=== PATIENT | female | born 1995 | race Caucasian/White ===

== ENCOUNTER 2017-04-30 23:26 | Emergency (ER) | payer MEDICAID ==
[2017-04-30] MEDS ORDERED: Sodium Chloride 0.9% 1,000 ML IV SCH (23:45)
[2017-04-30] MEDS ORDERED: Ondansetron 4 MG/2 ML SDV IVPUSH ONE (23:46)
[2017-04-30] MEDS ORDERED: Metoclopramide 10 MG/2 ML SDV IVPUSH ONE (23:56)
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
[2017-05-01 00:41] VITALS: BP 138/94
[2017-05-01] MEDS ORDERED: Metoclopramide 10 MG Tab PO ONE (01:04)
== END 2017-05-01 01:17 | disposition home or self-care (01) ==
LOC: JP.ED 23:26
DX: O21.1 Hyperemesis gravidarum with metabolic disturbance (principal); Z3A.01 Less than 8 weeks gestation of pregnancy; Z87.891 Personal history of nicotine dependence; Z88.1 Allergy status to other antibiotic agents; Z88.2 Allergy status to sulfonamides
CPT/HCPCS: 36415; 80053; 81001; 85025; 87086; 96361; 96374; 96375; 99284; A9270; J2405; J2765; J7040; 99283

== ENCOUNTER 2017-05-06 22:15 | Observation (INO) | payer MEDICAID ==
[2017-05-07] MEDS ORDERED: Ondansetron 4 MG/2 ML SDV IVPUSH ONE ×3 (00:01→07:25)
[2017-05-07] MEDS ORDERED: Metoclopramide 10 MG/2 ML SDV IVPUSH ONE ×2 (00:01→05:10)
[2017-05-07] MEDS ORDERED: Sodium Chloride 0.9% 1,000 ML IV SCH ×2 (00:15→01:15)
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
[2017-05-07] MEDS ORDERED: LORazepam 2 MG/ML MDV IVPUSH ONE ×2 (01:11→03:09)
[2017-05-07] MEDS ORDERED: Acetaminophen 325 MG Tab PO PRN (07:52)
[2017-05-07] MEDS ORDERED: Albuterol 8 GM Inhaler INH PRN (07:56)
[2017-05-07] MEDS ORDERED: LORazepam 2 MG/ML MDV IVPUSH PRN (08:05)
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
[2017-05-07] MEDS ORDERED: Scopolamine 1.5 MG Transdermal Patch TRDERM ONE (08:30)
[2017-05-07] MEDS: NS + KCl 20mEq/L 1,000 ML IV SCH ×2 (08:59→16:14)
[2017-05-07] MEDS ORDERED: THIAMINE IV ONE ×11 (09:30)
[2017-05-07] MEDS ORDERED: VITAMIN K IV ONE ×11 (09:30)
[2017-05-07] MEDS ORDERED: [UNRECOGNIZED DRUG - OTHER] IV ONE ×11 (09:30)
[2017-05-07] MEDS ORDERED: MVI IV ONE ×11 (09:30)
[2017-05-07] MEDS ORDERED: FOLIC ACID IV ONE ×11 (09:30)
[2017-05-07] MEDS: Metoclopramide 10 MG/2 ML SDV IV PRN ×3 (10:12→22:26)
[2017-05-07] MEDS: Promethazine 25 MG Supp RECTAL PRN ×2 (14:44→22:26)
[2017-05-07] MEDS ORDERED: Pantoprazole 40 MG Vial IVPUSH SCH (17:00)
[2017-05-07] MEDS: VERIFY SCOP PATCH TOP SCH (18:31)
[2017-05-07] MEDS ORDERED: IRON PO SCH (21:00)
[2017-05-07] MEDS ORDERED: PRENATAL VIT PO SCH (21:00)
[2017-05-07] MEDS ORDERED: [UNRECOGNIZED DRUG - OTHER] PO SCH (21:00)
[2017-05-07] MEDS ORDERED: Prenatal Multivitamin with Calcium/Folic Acid/Iron Tab PO SCH (21:00)
[2017-05-07] MEDS ORDERED: hydrOXYzine HCl 100 MG/2 ML SDV IM PRN (23:38)
[2017-05-08] MEDS: NS + KCl 20mEq/L 1,000 ML IV SCH ×2 (00:48→09:35)
[2017-05-08] MEDS ORDERED: Ondansetron 4 MG/2 ML SDV IVPUSH ONE (03:04)
[2017-05-08] MEDS: Metoclopramide 10 MG/2 ML SDV IV PRN (05:27)
[2017-05-08] MEDS: VERIFY SCOP PATCH TOP SCH (08:07)
[2017-05-08] MEDS: Promethazine 25 MG Supp RECTAL PRN (08:07)
--- NOTE | 2017-05-08 10:07 | PCM.DCSUM1 ---
Discharge Summary - Hospital Course Free Text/Narrative:: 21-year-old female was admitted through the emergency department today for 1 para 0 currently at 7 weeks 6 days intrauterine hyperemesis gravidarum with dehydration, she was kept in the emergency department several hours variety medications were tried including Reglan, Zofran, fluids Ativan with minimal relief. Subsequently is admitted to the hospital for further evaluation she was given a multivitamin IV bag which included thiamine and vitamin B12 along with a multivitamin her electrolytes were corrected with lactated Ringer's and magnesium phosphate. Medications used in treatment in the hospital included a scopolamine patch, Reglan, permanent promethazine rectal suppository fluid hydration through the night and Zofran. Also in the initial workup urine drug screen was obtained which was positive for cannabis she did take multiple hot showers during her stay in the emergency department, there is concern for combination of cannabis hyperemesis syndrome in combination with hyperemesis gravidarum. After treatment in the hospital she continued to improve was urinating, still having some dry heaves but able to tolerate brought diet bouts of emesis had decreased in frequency, Discharge assessment 2 para 0 now at 8 weeks intrauterine Hyperemesis gravidarum Cannabis hyperemesis syndrome PLAN for discharge to home would be combination of the scopolamine patch, promethazine rectal suppositories as needed as well as Thorazine for breakthrough nausea and vomiting, also has Zofran at home, she will follow up with her primary OB provider after the holiday weekend - Discharge Data Discharge Date: 05/08/17 Discharge Disposition: Home, Self-Care 01 Condition: Good - Discharge Diagnosis/Problem(s) (1) Hyperemesis gravidarum SNOMED Code(s): 35774418 ICD Code: O21.0 - MILD HYPEREMESIS GRAVIDARUM Status: Acute Current Visit : Yes (2) First trimester SNOMED Code(s): 74035102 ICD Code: Z34.90 - ENCNTR FOR SUPRVSN OF NORMAL , UNSP, UNSP TRIMESTER Status: Acute Current Visit: Yes (3) Asthma SNOMED Code(s): 830049453 ICD Code: J45.909 - UNSPECIFIED ASTHMA, UNCOMPLICATED Status: Chronic Current Visit: No (4) Cannabis hyperemesis syndrome concurrent with and due to cannabis abuse SNOMED Code(s): 85567871058812204 ICD Code: F12.188 - CANNABIS ABUSE WITH OTHER CANNABIS-INDUCED DISORDER Status: Acute Current Visit: Yes - Patient Instructions Diet: Regular Diet as Tolerated Driving: May Drive Today Showering/Bathing: May Shower Notify Provider of: Fever, Nausea and/or Vomiting (getting worse) - Discharge Plan Prescriptions/Med Rec: chlorproMAZINE [Thorazine] 25 mg PO Q4H PRN #10 tab PRN Reason: Nausea Promethazine HCl [Phenergan] 25 mg RC BID PRN #5 supp.rect PRN Reason: Nausea Scopolamine [Transderm-Scop] 1 each TD Q72H #4 patch.td.3 Home Medications: Home Meds Albuterol Sulfate [Proair Hfa] 1 - 2 puff IH Q4H PRN 05/12/13 [History] Ondansetron [Zofran] 1 tab PO Q8H PRN 07/04/14 [History] Vit #108/Iron/FA [ One Tablet] 1 tab PO BEDTIME 07/04/14 [ History] Promethazine HCl [Phenergan] 25 mg RC BID PRN #5 supp.rect 05/08/17 [Rx] Scopolamine [Transderm-Scop] 1 each TD Q72H #4 patch.td.3 05/08/17 [Rx] chlorproMAZINE [Thorazine] 25 mg PO Q4H PRN #10 tab 05/08/17 [Rx] Patient Handouts: Cannabis Use Disorder, Eating Plan for Hyperemesis Gravidarum , Promethazine suppositories, Chlorpromazine tablets Forms: ED Department Discharge Referrals: Jenn Purvis CNM [Primary Care Provider] - - Discharge Summary/Plan Comment DC Time >30 min.: No - Patient Data Vitals - Most Recent: Last Vital Signs Temp 97.9 F 05/08/17 03:21 Pulse 59 L 05/08/17 03:21 Resp 18 05/08/17 03:21 BP 126/73 05/08/17 03:21 Pulse Ox 95 05/08/17 03:21 Weight - Most Recent: 87.1 kg I&O - Last 24 hours: Intake & Output 05/07/17 05/08/17 05/08/17 22:59 06:59 14:59 Intake Total 1856 1562 Output Total 750 1350 Balance 1106 212 Lab Results - Last 24 hrs: Laboratory Results - last 24 hr 05/08/17 05/08/17 Range/Units 05:50 05:50 WBC 12.1 H (4.5-11.0) K/uL RBC 4.52 (3.30-5.50) M/uL Hgb 12.5 (12.0-15.0) g/dL Hct 36.5 (36.0-48.0) % MCV 81 (80-98) fL MCH 28 (27-31) pg MCHC 34 (32-36) % Plt Count 298 (150-400) K/uL Neut % (Auto) 79 H (36-66) % Lymph % (Auto) 14 L (24-44) % [place] % (Auto) 7 H (2-6) % Eos % (Auto) 0 L (2-4) % Baso % (Auto) 0 (0-1) % Sodium 135 L (140-148) mmol/L Potassium 3.8 (3.6-5.2) mmol/L Chloride 102 (100-108) mmol/L Carbon Dioxide 21 (21-32) mmol/L Anion Gap 15.8 H (5.0-14.0) mmol/L BUN 5 L (7-18) mg/dL Creatinine 0.5 L (0.6-1.0) mg/dL Est Cr Clr Drug Dosing 144.70 mL/min Estimated GFR (MDRD) > 60 (>60) Glucose 88 (74-106) mg/dL Calcium 9.0 (8.5-10.1) mg/dL Magnesium 1.8 (1.8-2.4) mg/dL [facility] Results - Last 24 hrs: Microbiology 05/07/17 22:15 Stool for WBCs - Final Stool / Feces NO WBC SEEN Med Orders - Current: Current Medications Acetaminophen (Tylenol) 650 mg PO Q4H PRN PRN Reason: mild pain and fever Albuterol (Ventolin Hfa) 0 gm INH Q4H PRN PRN Reason: Dyspnea Hydroxyzine HCl (Vistaril) 25 mg IM Q4H PRN PRN Reason: Anxiety Last Admin: 05/07/17 23:50 Dose: 25 mg Sodium Chloride (Normal Saline) 1,000 mls @ 250 mls/hr IV ASDIRECTED [facility] Last Admin: 05/07/17 01:32 Dose: 250 mls/hr Potassium Chloride/Sodium Chloride (Normal Saline With 20 Meq Kcl) 1,000 mls @ 125 mls/hr IV ASDIRECTED [facility] Last Admin: 05/08/17 09:35 Dose: 125 mls/hr Metoclopramide HCl (Reglan) 5 mg IV Q6H PRN PRN Reason: Nausea/Vomiting Last Admin: 05/08/17 05:27 Dose: 5 mg Verify Scop Patch 0 each TOP DAILY [facility] Last Admin: 05/08/17 08:07 Dose: 1 each Pantoprazole Sodium (Protonix Iv) 40 mg IVPUSH Q24H [facility] Last Admin: 05/07/17 18:31 Dose: 40 mg Prenat Multivit/[place]/Iron/Folic Ac ( Plus Iron) 1 each PO BEDTIME [facility] Last Admin: 05/07/17 21:49 Dose: Not Given Promethazine HCl (Phenadoz) 25 mg RECTAL Q8H PRN PRN Reason: N/V Last Admin: 05/08/17 08:07 Dose: 25 mg Discontinued Medications Sodium Chloride (Normal Saline) 1,000 mls @ 1,000 mls/hr IV ASDIRECTED [facility] Last Admin: 05/07/17 00:34 Dose: 1,000 mls/hr Multivitamins/Minerals 10 ml/Thiamine HCl 100 mg/ Folic Acid 0.6 mg/ Pyridoxine HCl 25 mg/ Lactated Ringer's 1,011.37 mls @ 100 mls/hr IV ONETIME ONE Stop: 05/07/17 19:36 Multivitamins/Minerals 10 ml/Thiamine HCl 100 mg/ Folic Acid 0.6 mg/ Pyridoxine HCl 25 mg/ Magnesium Sulfate 2 gm/Lactated Ringer's 1,015.37 mls @ 100.396 mls/ hr IV ONETIME ONE Stop: 05/07/17 19:36 Last Admin: 05/07/17 10:07 Dose: 100.396 mls/hr Lorazepam (Ativan) 0.5 mg IVPUSH ONETIME ONE Stop: 05/07/17 01:12 Last Admin: 05/07/17 01:28 Dose: 0.5 mg Lorazepam (Ativan) 0.5 mg IVPUSH ONETIME ONE Stop: 05/07/17 03:10 Last Admin: 05/07/17 03:18 Dose: 0.5 mg Lorazepam (Ativan) 1 mg IVPUSH Q4H PRN PRN Reason: Nausea Metoclopramide HCl (Reglan) 10 mg IVPUSH ONETIME ONE Stop: 05/07/17 00:02 Last Admin: 05/07/17 00:34 Dose: 10 mg Metoclopramide HCl (Reglan) 10 mg IVPUSH ONETIME ONE Stop: 05/07/17 05:11 Last Admin: 05/07/17 05:15 Dose: 10 mg Ondansetron HCl (Zofran) 4 mg IVPUSH ONETIME ONE Stop: 05/07/17 00:02 Last Admin: 05/07/17 00:34 Dose: 4 mg Ondansetron HCl (Zofran) 4 mg IVPUSH ONETIME ONE Stop: 05/07/17 03:10 Last Admin: 05/07/17 03:17 Dose: 4 mg Ondansetron HCl (Zofran) 8 mg IVPUSH ONETIME ONE Stop: 05/07/17 07:26 Last Admin: 05/07/17 07:35 Dose: 8 mg Ondansetron HCl (Zofran) 4 mg IVPUSH ONETIME ONE Stop: 05/08/17 03:05 Last Admin: 05/08/17 03:20 Dose: 4 mg Scopolamine (Transderm-Scop) 1.5 mg TRDERM Q72H ONE Stop: 05/07/17 08:31 Last Admin: 05/07/17 08:55 Dose: 1.5 mg *Q Meaningful Use (DIS) - VTE *Q VTE Criteria *Q: - Stroke *Q Stroke Criteria *Q: - AMI *Q AMI Criteria *Q:
[2017-05-08 10:40] VITALS: BP 143/84
== END 2017-05-08 11:31 | disposition home or self-care (01) ==
LOC: JP.ED 22:15 → JP.MS 05-07 07:52
PROVIDERS: ADMIT Family Medicine; ATTEND Family Medicine
DX: O21.0 Mild hyperemesis gravidarum (principal); J45.909 Unspecified asthma, uncomplicated; F12.188 Cannabis abuse with other cannabis-induced disorder; O99.341 Other mental disorders complicating pregnancy, first trimester; Z79.899 Other long term (current) drug therapy; Z88.1 Allergy status to other antibiotic agents; Z88.2 Allergy status to sulfonamides; Z3A.01 Less than 8 weeks gestation of pregnancy
CPT/HCPCS: 36415; 80048; 80305; 81001; 83735; 84100; 85025; 87493; 89055; 96361; 96365; 96366; 96372; 96375; 96376; 99217; 99218; 99285; A9270; C9113; G0378; J2060; J2405; J2765; J3410; J3411; J3415; J3475; J3480; J7040; J7120; 96374; 99284; J3490

== ENCOUNTER 2017-05-09 14:16 | Emergency (ER) | payer MEDICAID ==
[2017-05-09 14:41] VITALS: BP 140/94
[2017-05-09] MEDS ORDERED: LORazepam 2 MG/ML MDV IVPUSH ONE (15:17)
[2017-05-09] MEDS ORDERED: Metoclopramide 10 MG/2 ML SDV IVPUSH ONE (15:17)
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
[2017-05-09] MEDS ORDERED: Sodium Chloride 0.9% 1,000 ML IV SCH (15:30)
[2017-05-09] MEDS: Metoclopramide 10 MG Tab PO ONE (18:17)
== END 2017-05-09 18:20 | disposition home or self-care (01) ==
LOC: JP.ED 14:16
DX: O21.0 Mild hyperemesis gravidarum (principal); O99.511 Diseases of the respiratory system complicating pregnancy, first trimester; J45.909 Unspecified asthma, uncomplicated; Z88.2 Allergy status to sulfonamides; Z88.1 Allergy status to other antibiotic agents; Z79.899 Other long term (current) drug therapy; Z87.891 Personal history of nicotine dependence; Z3A.08 8 weeks gestation of pregnancy
CPT/HCPCS: 36415; 80048; 82150; 83690; 83735; 85025; 96361; 96374; 96375; 99284; A9270; J2060; J2765; J7040; 99283

== ENCOUNTER 2017-05-11 11:20 | Emergency (ER) | payer MEDICAID ==
[2017-05-11 11:45] VITALS: BP 145/101
[2017-05-11] MEDS ORDERED: LORazepam 2 MG/ML MDV IVPUSH ONE (12:13)
[2017-05-11] MEDS ORDERED: Metoclopramide 10 MG/2 ML SDV IVPUSH ONE (12:13)
[2017-05-11] MEDS ORDERED: Sodium Chloride 0.9% 1,000 ML IV SCH (12:15)
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
== END 2017-05-11 15:29 | disposition home or self-care (01) ==
LOC: JP.ED 11:20
DX: O21.0 Mild hyperemesis gravidarum (principal); Z3A.08 8 weeks gestation of pregnancy; Z88.1 Allergy status to other antibiotic agents
CPT/HCPCS: 96361; 96374; 96375; 99283; J2060; J2765; J7040

== ENCOUNTER 2017-05-16 21:53 | Emergency (ER) | payer MEDICAID ==
[2017-05-16 22:25] VITALS: BP 131/82
[2017-05-16] MEDS ORDERED: Sodium Chloride 0.9% 1,000 ML IV SCH (23:00)
[2017-05-16] MEDS ORDERED: LORazepam 2 MG/ML MDV IVPUSH ONE (23:03)
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
[2017-05-16] MEDS ORDERED: Metoclopramide 10 MG/2 ML SDV IVPUSH ONE (23:21)
[2017-05-16] MEDS ORDERED: Bisacodyl 10 MG Supp RECTAL ONE (23:57)
[2017-05-17] MEDS ORDERED: Ondansetron 4 MG/2 ML SDV IVPUSH ONE (00:11)
== END 2017-05-17 00:33 | disposition home or self-care (01) ==
LOC: JP.ED 21:53
DX: O21.0 Mild hyperemesis gravidarum (principal); Z3A.09 9 weeks gestation of pregnancy; Z87.891 Personal history of nicotine dependence; O99.511 Diseases of the respiratory system complicating pregnancy, first trimester; J45.909 Unspecified asthma, uncomplicated; Z88.2 Allergy status to sulfonamides; Z88.1 Allergy status to other antibiotic agents
CPT/HCPCS: 36415; 80048; 80305; 81001; 96361; 96374; 96375; 99284; A9270; J2060; J2405; J2765; J7040

== ENCOUNTER 2017-05-17 15:52 | Emergency (ER) | payer MEDICAID ==
[2017-05-17 16:10] VITALS: BP 143/89
[2017-05-17] MEDS ORDERED: Prochlorperazine 10 MG/2 ML SDV IVPUSH ONE (16:36)
[2017-05-17] MEDS ORDERED: Lactated Ringers 1,000 ML IV ONE (16:37)
[2017-05-17] MEDS ORDERED: Sodium Chloride 0.9% 10 ML Syringe FLUSH PRN (16:37)
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
[2017-05-17] MEDS ORDERED: Promethazine 25 MG Supp RECTAL PRN (17:01)
== END 2017-05-17 18:07 | disposition home or self-care (01) ==
LOC: JP.ED 15:52
DX: O21.9 Vomiting of pregnancy, unspecified (principal); O99.511 Diseases of the respiratory system complicating pregnancy, first trimester; J45.909 Unspecified asthma, uncomplicated; Z3A.10 10 weeks gestation of pregnancy; Z88.2 Allergy status to sulfonamides; Z79.899 Other long term (current) drug therapy; Z87.891 Personal history of nicotine dependence; Z88.1 Allergy status to other antibiotic agents
CPT/HCPCS: 81001; 96361; 96374; 99284; A9270; J0780; J7050; J7120; 99283

== ENCOUNTER 2017-05-30 15:57 | Emergency (ER) | payer MEDICAID ==
[2017-05-30 16:14] VITALS: BP 158/72
[2017-05-30] MEDS ORDERED: Scopolamine 1.5 MG Transdermal Patch TRDERM ONE (16:33)
[2017-05-30] MEDS ORDERED: Ondansetron 4 MG/2 ML SDV IVPUSH ONE (16:34)
[2017-05-30] MEDS ORDERED: Metoclopramide 10 MG/2 ML SDV IVPUSH ONE (16:35)
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
[2017-05-30] MEDS ORDERED: Sodium Chloride 0.9% 1,000 ML IV SCH (16:45)
== END 2017-05-30 17:57 | disposition home or self-care (01) ==
LOC: JP.ED 15:57
DX: O21.0 Mild hyperemesis gravidarum (principal); Z3A.11 11 weeks gestation of pregnancy; Z87.891 Personal history of nicotine dependence; Z79.899 Other long term (current) drug therapy; Z88.1 Allergy status to other antibiotic agents
CPT/HCPCS: 36415; 80048; 85025; 96361; 96374; 96375; 99284; A9270; J2405; J2765; J7040

== ENCOUNTER 2017-06-02 08:43 | Observation (INO) | payer MEDICAID ==
[2017-06-02] MEDS ORDERED: Scopolamine 1.5 MG Transdermal Patch TRDERM ONE (09:17)
[2017-06-02] MEDS ORDERED: Sodium Chloride 0.9% 1,000 ML IV SCH (09:30)
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
[2017-06-02] MEDS ORDERED: Ondansetron 4 MG/2 ML SDV IVPUSH ONE ×2 (09:44→14:00)
[2017-06-02] MEDS ORDERED: LORazepam 2 MG/ML MDV IVPUSH ONE (09:44)
[2017-06-02] MEDS ORDERED: Dextrose 5%-0.225% NaCl w/KCl 1,000 ML IV SCH (10:00)
[2017-06-02] MEDS ORDERED: Thiamine 200 MG/2 ML MDV IV SCH ×2 (11:30→12:00)
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
[2017-06-02] MEDS: Folic Acid 50 MG/10 ML MDV SUBCUT SCH (12:19)
[2017-06-02] MEDS: Thiamine 200 MG/2 ML MDV IV SCH (12:21)
[2017-06-02] MEDS: methylPREDNISolone Sodium Succinate 40 MG/1 ML SDV IV SCH ×2 (12:25→20:39)
[2017-06-02] MEDS: D5 1/2 NS w/ 20 mEq/L KCl 1,000 ML IV SCH (16:31)
[2017-06-02] MEDS: Prochlorperazine 5 MG in Sodium Chloride 0.9% 50 ML IV PRN (18:44)
[2017-06-02] MEDS: Ondansetron 4 MG/2 ML SDV IVPUSH SCH (22:25)
[2017-06-03] MEDS: D5 1/2 NS w/ 20 mEq/L KCl 1,000 ML IV SCH ×3 (00:21→16:53)
[2017-06-03] MEDS: methylPREDNISolone Sodium Succinate 40 MG/1 ML SDV IV SCH ×3 (04:20→20:57)
[2017-06-03] MEDS: Prochlorperazine 5 MG in Sodium Chloride 0.9% 50 ML IV PRN ×2 (07:25→17:17)
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
[2017-06-03] MEDS: Ondansetron 4 MG/2 ML SDV IVPUSH SCH ×2 (10:43→21:54)
[2017-06-03] MEDS: Folic Acid 50 MG/10 ML MDV SUBCUT SCH (13:12)
[2017-06-03] MEDS: Thiamine 200 MG/2 ML MDV IV SCH (13:16)
[2017-06-04] MEDS: Prochlorperazine 5 MG in Sodium Chloride 0.9% 50 ML IV PRN ×2 (01:52→08:00)
[2017-06-04] MEDS: methylPREDNISolone Sodium Succinate 40 MG/1 ML SDV IV SCH ×2 (04:21→18:02)
[2017-06-04] MEDS: Folic Acid 1 MG Tab PO SCH ×2 (11:00→16:39)
[2017-06-04] MEDS: Ondansetron 4 MG Tab.DIS PO SCH ×3 (11:00→17:21)
[2017-06-04] MEDS: Thiamine 100 MG Tab PO SCH ×2 (11:00→16:39)
[2017-06-04] MEDS ORDERED: Pantoprazole 40 MG Tab.CR PO ONE (16:30)
[2017-06-04] MEDS ORDERED: predniSONE 20 MG Tab PO ONE (17:00)
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
--- NOTE | 2017-06-04 17:13 | PCM.DCSUM1 ---
Discharge Summary - Hospital Course Brief History: admitted for Hyeremesis at 11 weeks gestation. Struggled for over a week to keep fluids and food down, was using THC for nausea which caused more problems. On admission had hpyokalemia and dehyration, through were corrected with fluids and potassium. after gut rest for 24 hours fluids were slowing introduced. Dundy foods and slow progress, oral medications today and emesis has resolved. - Discharge Data Discharge Date: 06/04/17 Discharge Disposition: Home, Self-Care 01 Condition: Good - Discharge Diagnosis/Problem(s) (1) Anxiety SNOMED Code(s): 34325556 ICD Code: F41.9 - ANXIETY DISORDER, UNSPECIFIED Status: Acute Current Visit: Yes (2) Dehydration SNOMED Code(s): 21879555 ICD Code: E86.0 - DEHYDRATION Status: Acute Current Visit: Yes (3) Hypokalemia SNOMED Code(s): 30379116 ICD Code: E87.6 - HYPOKALEMIA Status: Acute Current Visit: Yes (4) 11 weeks gestation of SNOMED Code(s): 98986694 ICD Code: Z3A.11 - 11 WEEKS GESTATION OF Status: Acute Current Visit: Yes (5) Hyperemesis gravidarum SNOMED Code(s): 03178499 ICD Code: O21.0 - MILD HYPEREMESIS GRAVIDARUM Status: Acute Current Visit : Yes (6) Cannabis hyperemesis syndrome concurrent with and due to cannabis abuse SNOMED Code(s): 54054768473613618 ICD Code: F12.188 - CANNABIS ABUSE WITH OTHER CANNABIS-INDUCED DISORDER Status: Acute Current Visit: Yes - Patient Instructions Diet, Other: small amounts of fluids, no ice, Dundy foods in small amounts, no overeatin Activity: As Tolerated Driving: May Drive Today Showering/Bathing: May Shower - Discharge Plan Home Medications: Home Meds Albuterol Sulfate [Proair Hfa] 1 - 2 puff IH Q4H PRN 05/12/13 [History] Ondansetron [Zofran] 4 mg PO Q8H PRN 07/04/14 [History] Vit #108/Iron/FA [ One Tablet] 1 tab PO BEDTIME 07/04/14 [ History] Promethazine HCl [Phenergan] 25 mg RC BID PRN #5 supp.rect 05/08/17 [Rx] Scopolamine [Transderm-Scop] 1 each TD Q72H #4 patch.td.3 05/08/17 [Rx] Metoclopramide HCl [Metoclopramide HCl] 10 mg PO Q6HR PRN 05/16/17 [History] Prochlorperazine [Compazine] 5 mg PO Q8H PRN 06/02/17 [History] Forms: ED Department Discharge Referrals: Jenn Purvis CNM [Primary Care Provider] - (see me next week) - Discharge Summary/Plan Comment DC Time >30 min.: Yes Discharge Summary/Plan Comment: Home on bland diet and small amounts of fluids, no ice decreasing prednisone taper for 13 days Thiamin daily Folic acid daily prilosec daily To start Prozac tomorrow for anxiety Zofran 8 mg every 8 hours prn for nausea and compazine for break through - Patient Data Vitals - Most Recent: Last Vital Signs Temp 97.6 F 06/04/17 01:00 Pulse 62 06/04/17 01:00 Resp 18 06/04/17 01:00 BP 111/60 06/04/17 01:00 Pulse Ox 96 06/04/17 01:00 Weight - Most Recent: 183 lb 3.2 oz I&O - Last 24 hours: Intake & Output 06/04/17 06/04/17 06/04/17 06:59 14:59 22:59 Output Total 400 Balance -400 Med Orders - Current: Current Medications Folic Acid (Folic Acid) 1 mg PO DAILY [facility] Last Admin: 06/04/17 16:39 Dose: Not Given Sodium Chloride (Normal Saline) 1,000 mls @ 999 mls/hr IV ASDIRECTED [facility] Last Infusion: 06/02/17 10:36 Dose: Infused Prochlorperazine Edisylate 5 (mg/ Sodium Chloride) 51 mls @ 150 mls/hr IV Q6H PRN PRN Reason: Nausea/Vomiting Last Admin: 06/04/17 01:52 Dose: 150 mls/hr Potassium Chloride/Dextrose/Sod Cl (D5 1/2 Ns W/ 20 Meq/L Kcl) 1,000 mls @ 125 mls/hr IV ASDIRECTED [facility] Last Admin: 06/03/17 16:53 Dose: 125 mls/hr Ondansetron HCl (Zofran Odt) 8 mg PO Q8H [facility] Last Admin: 06/04/17 16:39 Dose: Not Given Prenat Multivit/Mio/Iron/Folic Ac ( Plus Iron) 1 each PO BEDTIME [facility] Thiamine HCl (Vitamin B-1) 25 mg PO DAILY [facility] Last Admin: 06/04/17 16:39 Dose: Not Given Discontinued Medications Folic Acid (Folic Acid) 1 mg SUBCUT DAILY@1200 [facility] Last Admin: 06/03/17 13:12 Dose: 1 mg Potassium Chloride/Dextrose/Sod Cl (D5 1/4 Ns With 20 Meq Kcl) 1,000 mls @ 200 mls/hr IV ASDIRECTED [facility] Last Admin: 06/02/17 10:33 Dose: 200 mls/hr Lorazepam (Ativan) 0.5 mg IVPUSH ONETIME ONE Stop: 06/02/17 09:45 Last Admin: 06/02/17 10:37 Dose: 0.5 mg Methylprednisolone Sodium Succinate (Solu-Medrol) 16 mg IV Q8H [facility] Last Admin: 06/04/17 04:21 Dose: 16 mg Ondansetron HCl (Zofran) 4 mg IVPUSH ONETIME ONE Stop: 06/02/17 09:45 Last Admin: 06/02/17 10:37 Dose: 4 mg Ondansetron HCl (Zofran) 8 mg IVPUSH Q12H [facility] Last Admin: 06/03/17 21:54 Dose: 8 mg Ondansetron HCl (Zofran) 8 mg IVPUSH ONETIME ONE Stop: 06/02/17 14:01 Last Admin: 06/02/17 13:59 Dose: 8 mg Pantoprazole Sodium (Protonix) 40 mg PO ONETIME ONE Stop: 06/04/17 16:31 Last Admin: 06/04/17 16:40 Dose: 40 mg Prednisone (Prednisone) 40 mg PO ONETIME ONE Stop: 06/04/17 17:01 Scopolamine (Transderm-Scop) 1.5 mg TRDERM Q72H ONE Stop: 06/02/17 09:18 Last Admin: 06/02/17 09:35 Dose: 1.5 mg Thiamine HCl (Vitamin B-1) 25 mg IV Q24H [facility] Last Admin: 06/03/17 13:16 Dose: 25 mg *Q Meaningful Use (DIS) - VTE *Q VTE Criteria *Q: - Stroke *Q Stroke Criteria *Q: - AMI *Q AMI Criteria *Q:
[2017-06-04 17:40] VITALS: BP 127/79
[2017-06-04] MEDS ORDERED: Prenatal Multivitamin with Calcium/Folic Acid/Iron Tab PO SCH (21:00)
== END 2017-06-04 18:08 | disposition home or self-care (01) ==
LOC: JP.ED 08:43 → JP.MS 10:45
PROVIDERS: ADMIT Family Medicine; ATTEND Nurse Practitioner Family
DX: O21.1 Hyperemesis gravidarum with metabolic disturbance (principal); O99.341 Other mental disorders complicating pregnancy, first trimester; F41.9 Anxiety disorder, unspecified; F32.9 Major depressive disorder, single episode, unspecified; O99.321 Drug use complicating pregnancy, first trimester; F12.188 Cannabis abuse with other cannabis-induced disorder; O99.511 Diseases of the respiratory system complicating pregnancy, first trimester; J45.909 Unspecified asthma, uncomplicated; Z3A.11 11 weeks gestation of pregnancy; Z90.89 Acquired absence of other organs; Z87.891 Personal history of nicotine dependence; Z88.2 Allergy status to sulfonamides; Z88.1 Allergy status to other antibiotic agents
CPT/HCPCS: 36415; 80048; 80305; 81001; 84443; 85025; 87086; 96361; 96374; 96375; 99284; A9270; J0780; J2060; J2405; J2920; J3411; J3480; J7040; J7050; 81003; 96365; 96366; 96372; 96376; 99285; G0378; J3490

== ENCOUNTER 2017-06-13 20:49 | Emergency (ER) | payer MEDICAID ==
[2017-06-13 21:06] VITALS: BP 140/98
[2017-06-13] MEDS ORDERED: Ondansetron 4 MG/2 ML SDV IVPUSH ONE (21:32)
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
[2017-06-13] MEDS ORDERED: Sodium Chloride 0.9% 1,000 ML IV SCH ×2 (21:45→22:45)
[2017-06-13] MEDS ORDERED: Sodium Phosphate,Monobasic/Sodium Phosphate,Dibasic Enema 133 ML Bottle RECTAL ONE (21:46)
[2017-06-13] MEDS ORDERED: Metoclopramide 10 MG/2 ML SDV IVPUSH ONE (22:54)
== END 2017-06-13 23:48 | disposition home or self-care (01) ==
LOC: JP.ED 20:49
DX: O21.9 Vomiting of pregnancy, unspecified (principal); O99.611 Diseases of the digestive system complicating pregnancy, first trimester; K59.00 Constipation, unspecified; O99.511 Diseases of the respiratory system complicating pregnancy, first trimester; J45.909 Unspecified asthma, uncomplicated; O99.341 Other mental disorders complicating pregnancy, first trimester; F32.9 Major depressive disorder, single episode, unspecified; Z87.891 Personal history of nicotine dependence; Z79.899 Other long term (current) drug therapy; Z88.1 Allergy status to other antibiotic agents; Z88.2 Allergy status to sulfonamides; Z3A.13 13 weeks gestation of pregnancy
CPT/HCPCS: 36415; 80053; 80305; 81001; 85025; 96361; 96374; 96375; 99284; A9270; J2405; J2765; J7040

== ENCOUNTER 2017-06-30 00:29 | Emergency (ER) | payer MEDICAID ==
[2017-06-30] MEDS ORDERED: chlorproMAZINE 50 MG/2 ML Amp IV ONE (01:00)
[2017-06-30] MEDS ORDERED: Metoclopramide 10 MG/2 ML SDV IVPUSH ONE (01:00)
[2017-06-30] MEDS ORDERED: Sodium Chloride 0.9% 1,000 ML IV SCH ×2 (01:00→02:15)
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
[2017-06-30] MEDS ORDERED: Sodium Chloride 0.9% 50 ML IV SCH (01:30)
[2017-06-30 02:11] VITALS: BP 136/82
== END 2017-06-30 03:13 | disposition home or self-care (01) ==
LOC: JP.ED 00:29
DX: O21.0 Mild hyperemesis gravidarum (principal); Z3A.15 15 weeks gestation of pregnancy; Z88.2 Allergy status to sulfonamides; Z88.8 Allergy status to other drugs, medicaments and biological substances; Z79.899 Other long term (current) drug therapy
CPT/HCPCS: 80305; 81001; 96361; 96365; 96375; 99284; J2765; J3230; J7040; J7050; J7030

== ENCOUNTER 2017-07-31 08:22 | Emergency (ER) | payer MEDICAID ==
[2017-07-31 08:33] VITALS: BP 119/77
[2017-07-31] MEDS ORDERED: diphenhydrAMINE 25 MG Cap PO ONE (08:58)
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
== END 2017-07-31 09:29 | disposition home or self-care (01) ==
LOC: JP.ED 08:22
DX: O99.352 Diseases of the nervous system complicating pregnancy, second trimester (principal); G43.909 Migraine, unspecified, not intractable, without status migrainosus; Z88.2 Allergy status to sulfonamides; Z88.1 Allergy status to other antibiotic agents; Z79.899 Other long term (current) drug therapy; Z87.891 Personal history of nicotine dependence; Z3A.20 20 weeks gestation of pregnancy
CPT/HCPCS: 80305; 81001; 99284; A9270

== ENCOUNTER 2017-10-18 04:02 | Observation (INO) | payer MEDICAID ==
[2017-10-18] MEDS ORDERED: LORazepam 2 MG/ML SDV IVPUSH ONE (04:21)
[2017-10-18] MEDS ORDERED: Sodium Chloride 0.9% 10 ML Syringe FLUSH PRN (04:21)
[2017-10-18] MEDS ORDERED: Scopolamine 1.5 MG Transdermal Patch TRDERM PRN (04:28)
[2017-10-18] MEDS: Lactated Ringers 1,000 ML IV SCH ×3 (04:44→07:21)
[2017-10-18] MEDS ORDERED: Lactated Ringers 1,000 ML IV ONE (07:15)
[2017-10-18] MEDS ORDERED: Ondansetron 4 MG/2 ML SDV IVPUSH SCH (09:45)
[2017-10-18] MEDS ORDERED: Thiamine 200 MG/2 ML MDV IV SCH (10:00)
[2017-10-18] MEDS ORDERED: WATER IV SCH ×2 (10:00)
[2017-10-18] MEDS ORDERED: METHYLPREDNISOLONE SOD SUCC IV SCH ×2 (10:00)
[2017-10-18] MEDS ORDERED: DEXTROSE 5% IV SCH ×2 (10:00)
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
[2017-10-18] MEDS: NS + KCl 20mEq/L 1,000 ML IV SCH (11:29)
[2017-10-18] MEDS: methylPREDNISolone Sodium Succinate 40 MG/1 ML SDV IV SCH ×2 (11:29→17:23)
[2017-10-18] MEDS: Ondansetron 8 MG in Sodium Chloride 0.9% 50 ML IV SCH ×2 (11:41→20:37)
[2017-10-18] MEDS: Prochlorperazine 5 MG in Sodium Chloride 0.9% 50 ML IV SCH ×4 (12:07→23:24)
[2017-10-18] MEDS ORDERED: FOLIC ACID IV SCH (16:00)
[2017-10-18] MEDS ORDERED: KCL IV SCH (16:00)
[2017-10-18] MEDS ORDERED: NS IV SCH (16:00)
[2017-10-18] MEDS ORDERED: THIAMINE IV SCH (16:00)
[2017-10-19] MEDS: methylPREDNISolone Sodium Succinate 40 MG/1 ML SDV IV SCH ×2 (01:51→10:50)
[2017-10-19] MEDS: NS + KCl 20mEq/L 1,000 ML IV SCH ×3 (01:59→18:46)
[2017-10-19] MEDS: Prochlorperazine 5 MG in Sodium Chloride 0.9% 50 ML IV SCH ×2 (03:03→07:43)
[2017-10-19] MEDS: Ondansetron 8 MG in Sodium Chloride 0.9% 50 ML IV SCH (08:53)
--- NOTE | 2017-10-19 09:02 | PCM.PN ---
- General Info Date of Service: 10/19/17 Admission Dx/Problem (Free Text): Patient Status Order with Admit Dx/Problem 10/18/17 09:40 Admission Status [Patient Status] [ADT] Routine Admission Diagnosis/Problem Admission Diagnosis/Problem Hyperemesis gravidarum Functional Status: Reports: Other (not eating yet, will try this morning) - Review of Systems General: Reports: Other (nauseated) HEENT: Reports: No Symptoms Pulmonary: Reports: No Symptoms Cardiovascular: Reports: No Symptoms Gastrointestinal: Reports: Vomiting Genitourinary: Reports: No Symptoms Musculoskeletal: Reports: No Symptoms Skin: Reports: No Symptoms Neurological: Reports: No Symptoms Psychiatric: Reports: No Symptoms - Patient Data Vitals - Most Recent: Last Vital Signs Temp 97.0 F 10/19/17 06:54 Pulse 95 10/19/17 06:54 Resp 18 10/19/17 06:54 BP 143/78 H 10/19/17 06:54 Pulse Ox 97 10/19/17 06:54 Weight - Most Recent: 190 lb I&O - Last 24 Hours: Intake & Output 10/18/17 10/19/17 10/19/17 22:59 06:59 14:59 Intake Total 1234 1223 50 Output Total 650 1400 50 Balance 584 -177 0 Lab Results Last 24 Hours: Laboratory Results - last 24 hr 10/18/17 10/18/17 10/18/17 Range/Units 08:23 08:23 10:48 Sodium 135 L (140-148) mmol/L Potassium 3.2 L (3.6-5.2) mmol/L Chloride 102 (100-108) mmol/L Carbon Dioxide 14 L (21-32) mmol/L Anion Gap 22.2 H (5.0-14.0) mmol/L BUN 7 (7-18) mg/dL Creatinine 0.5 L (0.6-1.0) mg/dL Est Cr Clr Drug Dosing 143.52 mL/min Estimated GFR (MDRD) > 60 (>60) Glucose 110 H (74-106) mg/dL Hemoglobin A1c (4.5-6.2) % Calcium 9.3 (8.5-10.1) mg/dL Total Bilirubin 0.7 (0.2-1.0) mg/dL AST 14 L (15-37) U/L ALT 14 D (12-78) U/L Alkaline Phosphatase 61 (46-116) U/L Total Protein 6.7 (6.4-8.2) g/dL Albumin 2.6 L (3.4-5.0) g/dL Globulin 4.1 H (2.3-3.5) g/dL Albumin/Globulin Ratio 0.6 L (1.2-2.2) Free T4 (0.76-1.46) ng/dL Free T3 (2.18-3.98) pg/dL TSH, Ultra Sensitive (0.358-3.740) uIU/mL Urine Color Yellow Urine Appearance Cloudy Urine pH 5.0 (4.5-8.0) Ur Specific Sophia 1.030 (1.008-1.030) Urine Protein Negative (NEGATIVE) mg/dL Urine Glucose (UA) Normal (NEGATIVE) mg/dL Urine Ketones 150 H (NEGATIVE) mg/dL Urine Occult Blood Moderate (NEGATIVE) Urine Nitrite Negative (NEGATIVE) Urine Bilirubin Negative (NEGATIVE) Urine Urobilinogen Normal (NORMAL) mg/dL Ur Leukocyte Esterase Negative (NEGATIVE) Urine RBC 5-10 H (0-5) Urine WBC 0-5 (0-5) Ur Epithelial Cells Many Amorphous Sediment Rare Urine Bacteria Moderate Urine Mucus Not seen Urine Other See note Urine Opiates Screen Negative (NEGATIVE) Ur Oxycodone Screen Negative (NEGATIVE) Urine Methadone Screen Negative (NEGATIVE) Ur Propoxyphene Screen Negative (NEGATIVE) Ur Barbiturates Screen Negative (NEGATIVE) Ur Tricyclics Screen Negative (NEGATIVE) Ur Phencyclidine Scrn Negative (NEGATIVE) Ur Amphetamine Screen Negative (NEGATIVE) U Methamphetamines Scrn Negative (NEGATIVE) Urine MDMA Screen Negative (NEGATIVE) U Benzodiazepines Scrn Positive H (NEGATIVE) U Cocaine Metab Screen Negative (NEGATIVE) U Marijuana (THC) Screen Negative (NEGATIVE) 10/18/17 10/18/17 Range/Units 10:48 10:48 Sodium (140-148) mmol/L Potassium (3.6-5.2) mmol/L Chloride (100-108) mmol/L Carbon Dioxide (21-32) mmol/L Anion Gap (5.0-14.0) mmol/L BUN (7-18) mg/dL Creatinine (0.6-1.0) mg/dL Est Cr Clr Drug Dosing mL/min Estimated GFR (MDRD) (>60) Glucose (74-106) mg/dL Hemoglobin A1c 5.7 (4.5-6.2) % Calcium (8.5-10.1) mg/dL Total Bilirubin (0.2-1.0) mg/dL AST (15-37) U/L ALT (12-78) U/L Alkaline Phosphatase (46-116) U/L Total Protein (6.4-8.2) g/dL Albumin (3.4-5.0) g/dL Globulin (2.3-3.5) g/dL Albumin/Globulin Ratio (1.2-2.2) Free T4 1.36 (0.76-1.46) ng/dL Free T3 2.14 L (2.18-3.98) pg/dL TSH, Ultra Sensitive 0.762 (0.358-3.740) uIU/mL Urine Color Urine Appearance Urine pH (4.5-8.0) Ur Specific Sophia (1.008-1.030) Urine Protein (NEGATIVE) mg/dL Urine Glucose (UA) (NEGATIVE) mg/dL Urine Ketones (NEGATIVE) mg/dL Urine Occult Blood (NEGATIVE) Urine Nitrite (NEGATIVE) Urine Bilirubin (NEGATIVE) Urine Urobilinogen (NORMAL) mg/dL Ur Leukocyte Esterase (NEGATIVE) Urine RBC (0-5) Urine WBC (0-5) Ur Epithelial Cells Amorphous Sediment Urine Bacteria Urine Mucus Urine Other Urine Opiates Screen (NEGATIVE) Ur Oxycodone Screen (NEGATIVE) Urine Methadone Screen (NEGATIVE) Ur Propoxyphene Screen (NEGATIVE) Ur Barbiturates Screen (NEGATIVE) Ur Tricyclics Screen (NEGATIVE) Ur Phencyclidine Scrn (NEGATIVE) Ur Amphetamine Screen (NEGATIVE) U Methamphetamines Scrn (NEGATIVE) Urine MDMA Screen (NEGATIVE) U Benzodiazepines Scrn (NEGATIVE) U Cocaine Metab Screen (NEGATIVE) U Marijuana (THC) Screen (NEGATIVE) Med Orders - Current: Current Medications Prochlorperazine Edisylate 5 (mg/ Sodium Chloride) 51 mls @ 150 mls/hr IV Q4H [facility] Last Admin: 10/19/17 07:43 Dose: 150 mls/hr Potassium Chloride/Sodium Chloride (Normal Saline With 20 Meq Kcl) 1,000 mls @ 125 mls/hr IV ASDIRECTED [facility] Last Admin: 10/19/17 01:59 Dose: 125 mls/hr Ondansetron HCl 8 mg/ Sodium (Chloride) 54 mls @ 200 mls/hr IV BID [facility] Last Admin: 10/18/17 20:37 Dose: 200 mls/hr Thiamine HCl 25 mg/ Folic Acid 0.5 mg/ Potassium Chloride/Sodium Chloride 1, 000.35 mls @ 125.044 mls/hr IV DAILY@1600 [facility] Last Admin: 10/18/17 17:22 Dose: 125.044 mls/hr Methylprednisolone Sodium Succinate (Solu-Medrol) 16 mg IV Q8H [facility] Last Admin: 10/19/17 01:51 Dose: 16 mg Sodium Chloride (Saline Flush) 10 ml FLUSH ASDIRECTED PRN PRN Reason: Keep Vein Open Discontinued Medications Lactated Ringer's (Ringers, Lactated) 1,000 mls @ 999 mls/hr IV Q1H [facility] Stop: 10/18/17 06:29 Last Admin: 10/18/17 07:21 Dose: 999 mls/hr Lactated Ringer's (Ringers, Lactated) 1,000 mls @ 999 mls/hr IV BOLUS ONE Stop: 10/18/17 08:15 Last Admin: 10/18/17 11:08 Dose: Not Given Lorazepam (Ativan) 1 mg IVPUSH ONETIME ONE Stop: 10/18/17 04:22 Last Admin: 10/18/17 04:44 Dose: 1 mg Scopolamine (Transderm-Scop) 1.5 mg TRDERM Q72H PRN PRN Reason: Nausea - Exam General: Alert, Oriented, Cooperative HEENT: Pupils Equal Neck: Supple Lungs: Clear to Auscultation, Normal Respiratory Effort Cardiovascular: Regular Rate, Regular Rhythm GI/Abdominal Exam: Normal Bowel Sounds Back Exam: Normal Inspection Extremities: Normal Inspection, No Pedal Edema Skin: Warm Psy/Mental Status: Alert, Normal Affect, Depressed - Problem List & Annotations (1) SNOMED Code(s): 53706166 Code(s): Z34.90 - ENCNTR FOR SUPRVSN OF NORMAL , UNSP, UNSP TRIMESTER Status: Acute Current Visit: Yes Qualifiers: Weeks of gestation: 31 weeks Qualified Code(s): Z3A.31 - 31 weeks gestation of (2) Hyperemesis gravidarum SNOMED Code(s): 69961201 Code(s): O21.0 - MILD HYPEREMESIS GRAVIDARUM Status: Acute Priority: High Current Visit: Yes (3) PIH ( induced hypertension), antepartum SNOMED Code(s): 67824747, 48668960 Code(s): O13.9 - GESTATIONAL HTN W/O SIGNIFICANT PROTEINURIA, UNSP TRIMESTER Status: Acute Current Visit: Yes - Problem List Review Problem List Initiated/Reviewed/Updated: Yes - My Orders Last 24 Hours: My Active Orders 10/18/17 09:40 Admission Status [Patient Status] [ADT] Routine 10/18/17 10:00 NS + KCl 20mEq/L [Normal Saline with 20 mEq KCl] 1,000 ml IV ASDIRECTED methylPREDNISolone Sod Succ [Solu-MEDROL] 16 mg IV Q8H 10/18/17 10:48 THYROGLOBULIN ANTIBODY Routine THYROID PEROXIDASE (TPO) AB Routine 10/18/17 11:00 Ondansetron [Zofran] 8 mg Sodium Chloride 0.9% [Normal Saline] 50 ml IV BID 10/18/17 12:00 Prochlorperazine [Compazine] 5 mg Sodium Chloride 0.9% [Normal Saline] 50 ml IV Q4H 10/18/17 16:00 Thiamine [Vitamin B-1] 25 mg Folic Acid 0.5 mg NS + KCl 20mEq/L [Normal Saline with 20 mEq KCl] 1,000 ml IV DAILY@1600 10/18/17 Lunch NPO [Nothing Per Oral Diet] [DIET] - Assessment Assessment:: 10/19/17 Hyperemesis gavidarum Some improvement over yesterday, vomiting less, feels some better treating hypokalemia with IV KCL, BMP today thyroid studies pending [facility], will add labetalol Had this with her last as well concern for GDM will check 2 hour pp today - Plan Plan:: 10/18/17 this 22 year old 31 weeks gestation severe hyperemsis gavidarum. Here for re-hydration and management baby moving failed 1 hour GTT at clinic, vomited after glucose for 3 hr gtt, First blood sugars for monitoring within normal limits. Plan: NS with KCL Solumedrol 16 mg every 8 hours Zofran 8 mg every 12 hours over 15 minutes Compazine 5 mg every 4 hours Folic acid 400 mcg daily IV Thiamine 25 mg daily IV NPO until this evening then ice chips only 30 cc every 30 minutes Doing thyroid studies today check HGB A1C, CMP Once eating blood sugars check 2 hours PP and fasting AM Plan stop Compazine Change folic acid 1 mg and thiamine 100 mg to PO Change Zofran to 4mg po PRN Add Reglan 10 TID, po Add omeprazole 20 mg po daily Labetalol 100 mg daily, po add regular diet Home tomorrow if all goes well two hour pp blood sugar at bedside
[2017-10-19] MEDS: Folic Acid 1 MG Tab PO SCH (10:49)
[2017-10-19] MEDS: Labetalol 100 MG Tab PO SCH (10:49)
[2017-10-19] MEDS: Metoclopramide 10 MG Tab PO SCH ×2 (10:50→15:37)
[2017-10-19] MEDS: Pantoprazole 40 MG Tab.CR PO SCH (10:50)
[2017-10-19] MEDS: Thiamine 100 MG Tab PO SCH (10:55)
[2017-10-19] MEDS: Ondansetron 4 MG Tab.DIS PO PRN ×2 (12:39→20:42)
[2017-10-20] MEDS: NS + KCl 20mEq/L 1,000 ML IV SCH (03:28)
[2017-10-20] MEDS: Pantoprazole 40 MG Tab.CR PO SCH ×2 (07:45→08:50)
[2017-10-20] MEDS: Metoclopramide 10 MG Tab PO SCH ×3 (07:46→10:52)
[2017-10-20] MEDS: Ondansetron 4 MG Tab.DIS PO PRN (08:04)
[2017-10-20 08:19] VITALS: BP 147/89
[2017-10-20] MEDS: Folic Acid 1 MG Tab PO SCH (08:52)
[2017-10-20] MEDS: Labetalol 100 MG Tab PO SCH (08:52)
[2017-10-20] MEDS: Thiamine 100 MG Tab PO SCH (08:52)
--- NOTE | 2017-10-20 08:56 | PCM.PN ---
- General Info Date of Service: 10/20/17 (D/C) Admission Dx/Problem (Free Text): Patient Status Order with Admit Dx/Problem 10/18/17 09:40 Admission Status [Patient Status] [ADT] Routine Admission Diagnosis/Problem Admission Diagnosis/Problem Hyperemesis gravidarum Functional Status: Reports: Pain Controlled, Other (keeping food down mostly) - Review of Systems General: Reports: Fatigue HEENT: Reports: No Symptoms Pulmonary: Reports: No Symptoms Cardiovascular: Reports: No Symptoms Gastrointestinal: Reports: No Symptoms Genitourinary: Reports: No Symptoms Musculoskeletal: Reports: No Symptoms Skin: Reports: Bruising Neurological: Reports: No Symptoms Psychiatric: Reports: No Symptoms - Patient Data Vitals - Most Recent: Last Vital Signs Temp 97.1 F 10/20/17 07:53 Pulse 81 10/20/17 07:53 Resp 20 10/20/17 07:53 BP 147/89 H 10/20/17 07:53 Pulse Ox 97 10/20/17 07:53 Weight - Most Recent: 190 lb I&O - Last 24 Hours: Intake & Output 10/19/17 10/20/17 10/20/17 22:59 06:59 14:59 Intake Total 2361 1210 Output Total 1225 300 Balance 1136 910 Lab Results Last 24 Hours: Laboratory Results - last 24 hr 10/19/17 Range/Units 09:26 Sodium 136 L (140-148) mmol/L Potassium 3.7 (3.6-5.2) mmol/L Chloride 103 (100-108) mmol/L Carbon Dioxide 14 L (21-32) mmol/L Anion Gap 22.7 H (5.0-14.0) mmol/L BUN 5 L (7-18) mg/dL Creatinine 0.5 L (0.6-1.0) mg/dL Est Cr Clr Drug Dosing 143.52 mL/min Estimated GFR (MDRD) > 60 (>60) Glucose 95 (74-106) mg/dL Calcium 9.1 (8.5-10.1) mg/dL Med Orders - Current: Current Medications Folic Acid (Folic Acid) 1 mg PO DAILY [facility] Last Admin: 10/19/17 10:49 Dose: 1 mg Potassium Chloride/Sodium Chloride (Normal Saline With 20 Meq Kcl) 1,000 mls @ 125 mls/hr IV ASDIRECTED [facility] Last Admin: 10/20/17 03:28 Dose: 125 mls/hr Labetalol HCl (Normodyne) 100 mg PO DAILY [facility] Last Admin: 10/19/17 10:49 Dose: 100 mg Metoclopramide HCl (Reglan) 10 mg PO TIDAC [facility] Last Admin: 10/19/17 15:37 Dose: 10 mg Ondansetron HCl (Zofran Odt) 4 mg PO Q8H PRN PRN Reason: Nausea/Vomiting Last Admin: 10/20/17 08:04 Dose: 4 mg Pantoprazole Sodium (Protonix) 40 mg PO ACBREAKFAST [facility] Last Admin: 10/19/17 10:50 Dose: 40 mg Sodium Chloride (Saline Flush) 10 ml FLUSH ASDIRECTED PRN PRN Reason: Keep Vein Open Thiamine HCl (Vitamin B-1) 100 mg PO DAILY [facility] Last Admin: 10/19/17 10:55 Dose: 100 mg Discontinued Medications Lactated Ringer's (Ringers, Lactated) 1,000 mls @ 999 mls/hr IV Q1H [facility] Stop: 10/18/17 06:29 Last Admin: 10/18/17 07:21 Dose: 999 mls/hr Lactated Ringer's (Ringers, Lactated) 1,000 mls @ 999 mls/hr IV BOLUS ONE Stop: 10/18/17 08:15 Last Admin: 10/18/17 11:08 Dose: Not Given Prochlorperazine Edisylate 5 (mg/ Sodium Chloride) 51 mls @ 150 mls/hr IV Q4H [facility] Last Admin: 10/19/17 07:43 Dose: 150 mls/hr Ondansetron HCl 8 mg/ Sodium (Chloride) 54 mls @ 200 mls/hr IV BID [facility] Last Admin: 10/19/17 08:53 Dose: 200 mls/hr Thiamine HCl 25 mg/ Folic Acid 0.5 mg/ Potassium Chloride/Sodium Chloride 1, 000.35 mls @ 125.044 mls/hr IV DAILY@1600 [facility] Last Admin: 10/18/17 17:22 Dose: 125.044 mls/hr Lorazepam (Ativan) 1 mg IVPUSH ONETIME ONE Stop: 10/18/17 04:22 Last Admin: 10/18/17 04:44 Dose: 1 mg Methylprednisolone Sodium Succinate (Solu-Medrol) 16 mg IV Q8H [facility] Last Admin: 10/19/17 10:50 Dose: 16 mg Scopolamine (Transderm-Scop) 1.5 mg TRDERM Q72H PRN PRN Reason: Nausea - Exam General: Alert, Oriented HEENT: Pupils Equal, Pupils Reactive, Mucous Membr. Moist/[place] Neck: Supple Lungs: Clear to Auscultation, Normal Respiratory Effort Cardiovascular: Regular Rate, Regular Rhythm GI/Abdominal Exam: Normal Bowel Sounds, Non-Tender Back Exam: Normal Inspection, Other (bruising from massage) Extremities: No Pedal Edema, Normal Capillary Refill Skin: Warm, Dry Psy/Mental Status: Alert, Normal Affect - Problem List & Annotations (1) SNOMED Code(s): 44225643 Code(s): Z34.90 - ENCNTR FOR SUPRVSN OF NORMAL , UNSP, UNSP TRIMESTER Status: Acute Current Visit: Yes Qualifiers: Weeks of gestation: 31 weeks Qualified Code(s): Z3A.31 - 31 weeks gestation of (2) Hyperemesis gravidarum SNOMED Code(s): 90380226 Code(s): O21.0 - MILD HYPEREMESIS GRAVIDARUM Status: Acute Priority: High Current Visit: Yes (3) PIH ( induced hypertension), antepartum SNOMED Code(s): 71240820, 34872357 Code(s): O13.9 - GESTATIONAL HTN W/O SIGNIFICANT PROTEINURIA, UNSP TRIMESTER Status: Acute Current Visit: Yes - Problem List Review Problem List Initiated/Reviewed/Updated: Yes - My Orders Last 24 Hours: My Active Orders 10/19/17 09:07 Ondansetron [Zofran ODT] 4 mg PO Q8H PRN 10/19/17 09:16 Communication Order [RC] BID 10/19/17 10:00 Folic Acid 1 mg PO DAILY Labetalol [Normodyne] 100 mg PO DAILY Pantoprazole [ProTONIX] 40 mg PO ACBREAKFAST Thiamine [Vitamin B-1] 100 mg PO DAILY 10/19/17 11:00 Metoclopramide [Reglan] 10 mg PO TIDAC 10/19/17 Lunch Consistent Carbohydrate Diet [DIET] - Assessment Assessment:: 10/19/17 Hyperemesis gavidarum Some improvement over yesterday, vomiting less, feels some better treating hypokalemia with IV KCL, BMP today thyroid studies pending PIH, will add labetalol Had this with her last as well concern for GDM will check 2 hour pp today 10/20/17 over all feeling better, keeping some food down. Hypokalemia resolved PIH improved with Labetalol blood sugars improved with stopping steroid. wants to go home - Plan Plan:: 10/18/17 this 22 year old 31 weeks gestation severe hyperemsis gavidarum. Here for re-hydration and management baby moving failed 1 hour GTT at clinic, vomited after glucose for 3 hr gtt, First blood sugars for monitoring within normal limits. Plan: NS with KCL Solumedrol 16 mg every 8 hours Zofran 8 mg every 12 hours over 15 minutes Compazine 5 mg every 4 hours Folic acid 400 mcg daily IV Thiamine 25 mg daily IV NPO until this evening then ice chips only 30 cc every 30 minutes Doing thyroid studies today check HGB A1C, CMP Once eating blood sugars check 2 hours PP and fasting AM Plan stop Compazine Change folic acid 1 mg and thiamine 100 mg to PO Change Zofran to 4mg po PRN Add Reglan 10 TID, po Add omeprazole 20 mg po daily Labetalol 100 mg daily, po add regular diet Home tomorrow if all goes well two hour pp blood sugar at bedside Plan Home today, see me Saturday in clinic Continue Reglan 10 tid use Zofran PRN Omeprazole 20 mg daily Labetalol 100 mg daily Reglan 10 TID
== END 2017-10-20 11:00 | disposition home or self-care (01) ==
LOC: JP.OBCHECK 04:02 → JP.MS 09:40
PROVIDERS: ADMIT Nurse Practitioner Family; ATTEND Nurse Practitioner Family
DX: O21.1 Hyperemesis gravidarum with metabolic disturbance (principal); O13.3 Gestational [pregnancy-induced] hypertension without significant proteinuria, third trimester; Z3A.31 31 weeks gestation of pregnancy; Z88.8 Allergy status to other drugs, medicaments and biological substances; Z79.899 Other long term (current) drug therapy
CPT/HCPCS: 36415; 80048; 80053; 80305; 81001; 83036; 84439; 84443; 84481; 86376; 86800; 99211; A9270; J0780; J2060; J2405; J2920; J3411; J3480; J7050; J7120; J3490

== ENCOUNTER 2017-11-16 17:28 | Inpatient (IN) | payer MEDICAID ==
[2017-11-16] MEDS ORDERED: Sodium Chloride 0.9% 10 ML Syringe FLUSH PRN (18:01)
[2017-11-16] MEDS ORDERED: Sodium Chloride 0.9% 1,000 ML IV ONE (18:01)
[2017-11-16] MEDS ORDERED: Ondansetron 4 MG/2 ML SDV IVPUSH PRN (19:57)
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
--- NOTE | 2017-11-16 20:33 | PCM.PN ---
- General Info Date of Service: 11/16/17 - Patient Data Vitals - Most Recent: Last Vital Signs Temp 36.9 C 11/16/17 20:25 Pulse 93 11/16/17 20:25 Resp 20 11/16/17 20:25 BP 146/94 H 11/16/17 20:25 Pulse Ox 97 11/16/17 20:25 Weight - Most Recent: 94.347 kg Lab Results Last 24 Hours: Laboratory Results - last 24 hr 11/16/17 11/16/17 11/16/17 Range/Units 17:36 19:54 19:54 WBC 12.0 H (4.5-11.0) K/uL RBC 4.21 (3.30-5.50) M/uL Hgb 11.3 L D (12.0-15.0) g/dL Hct 34.9 L (36.0-48.0) % MCV 83 (80-98) fL MCH 27 (27-31) pg MCHC 32 (32-36) % Plt Count 346 (150-400) K/uL Neut % (Auto) 80 H (36-66) % Lymph % (Auto) 12 L (24-44) % [place] % (Auto) 8 H (2-6) % Eos % (Auto) 0 L (2-4) % Baso % (Auto) 0 (0-1) % Sodium 136 L (140-148) mmol/L Potassium 4.0 (3.6-5.2) mmol/L Chloride 102 (100-108) mmol/L Carbon Dioxide 17 L (21-32) mmol/L Anion Gap 21.0 H (5.0-14.0) mmol/L BUN 3 L (7-18) mg/dL Creatinine 0.6 (0.6-1.0) mg/dL Est Cr Clr Drug Dosing 119.60 mL/min Estimated GFR (MDRD) > 60 (>60) Glucose 78 (74-106) mg/dL Calcium 9.2 (8.5-10.1) mg/dL Total Bilirubin 0.8 (0.2-1.0) mg/dL AST 15 (15-37) U/L ALT 14 (12-78) U/L Alkaline Phosphatase 89 (46-116) U/L Total Protein 6.9 (6.4-8.2) g/dL Albumin 2.5 L (3.4-5.0) g/dL Globulin 4.4 H (2.3-3.5) g/dL Albumin/Globulin Ratio 0.6 L (1.2-2.2) Urine Color Yellow Urine Appearance Clear Urine pH 5.0 (4.5-8.0) Ur Specific [place] 1.030 (1.008-1.030) Urine Protein Negative (NEGATIVE) mg/dL Urine Glucose (UA) Normal (NEGATIVE) mg/dL Urine Ketones 150 H (NEGATIVE) mg/dL Urine Occult Blood Negative (NEGATIVE) Urine Nitrite Negative (NEGATIVE) Urine Bilirubin Negative (NEGATIVE) Urine Urobilinogen Normal (NORMAL) mg/dL Ur Leukocyte Esterase Negative (NEGATIVE) Urine RBC 0-5 (0-5) Urine WBC 0-5 (0-5) Ur Epithelial Cells Few Amorphous Sediment Many Urine Bacteria Not seen Urine Mucus Not seen Med Orders - Current: Current Medications Folic Acid (Folic Acid) 1 mg SUBCUT DAILY [facility] Prochlorperazine Edisylate 5 (mg/ Sodium Chloride) 51 mls @ 150 mls/hr IV Q6H PRN PRN Reason: Nausea/Vomiting Sodium Chloride (Normal Saline) 1,000 mls @ 125 mls/hr IV ASDIRECTED JAVI Ondansetron HCl (Zofran) 8 mg IVPUSH Q12H PRN PRN Reason: Nausea/Vomiting Sodium Chloride (Saline Flush) 10 ml FLUSH ASDIRECTED PRN PRN Reason: Keep Vein Open Thiamine HCl (Vitamin B-1) 6 mg IV DAILY JAVI Discontinued Medications Sodium Chloride (Normal Saline) 1,000 mls @ 999 mls/hr IV .BOLUS ONE Stop: 11/16/17 19:01 Last Admin: 11/16/17 18:18 Dose: 999 mls/hr - Problem List & Annotations (1) Social problem SNOMED Code(s): 002971964 Code(s): Z65.9 - PROBLEM RELATED TO UNSPECIFIED PSYCHOSOCIAL CIRCUMSTANCES Status: Acute Priority: High Current Visit: Yes (2) 35 weeks gestation of SNOMED Code(s): 35964927 Code(s): Z3A.35 - 35 WEEKS GESTATION OF Status: Acute Priority : High Current Visit: Yes (3) Anxiety SNOMED Code(s): 04309048 Code(s): F41.9 - ANXIETY DISORDER, UNSPECIFIED Status: Acute Priority: Medium Current Visit: Yes (4) Cannabis hyperemesis syndrome concurrent with and due to cannabis abuse SNOMED Code(s): 01237706978375131 Code(s): F12.188 - CANNABIS ABUSE WITH OTHER CANNABIS-INDUCED DISORDER Status: Acute Priority: High Current Visit: Yes (5) Dehydration SNOMED Code(s): 43283193 Code(s): E86.0 - DEHYDRATION Status: Acute Priority: High Current Visit : Yes (6) Hyperemesis gravidarum SNOMED Code(s): 85589122 Code(s): O21.0 - MILD HYPEREMESIS GRAVIDARUM Status: Acute Priority: High Current Visit: Yes (7) Nausea & vomiting SNOMED Code(s): 53669367 Code(s): R11.2 - NAUSEA WITH VOMITING, UNSPECIFIED Status: Acute Priority : High Current Visit: Yes (8) SNOMED Code(s): 76482673 Code(s): Z34.90 - ENCNTR FOR SUPRVSN OF NORMAL , UNSP, UNSP TRIMESTER Status: Acute Current Visit: Yes Qualifiers: Weeks of gestation: 35 weeks Qualified Code(s): Z3A.35 - 35 weeks gestation of (9) PIH ( induced hypertension), antepartum SNOMED Code(s): 90599689, 96569646 Code(s): O13.9 - GESTATIONAL HTN W/O SIGNIFICANT PROTEINURIA, UNSP TRIMESTER Status: Acute Current Visit: No - Problem List Review Problem List Initiated/Reviewed/Updated: Yes - My Orders Last 24 Hours: My Active Orders 11/16/17 17:36 URINALYSIS W/MICROSCOPIC [UA W/MICROSCOPIC] [URIN] Routine 11/16/17 18:01 Peripheral IV Care [RC] . DIRECTED Sodium Chloride 0.9% [Saline Flush] 10 ml FLUSH ASDIRECTED PRN Peripheral IV Insertion Adult [OM.PC] Routine 11/16/17 19:54 Patient Status [ADT] Routine Ambulate [RC] PER UNIT ROUTINE May Shower [RC] ASDIRECTED Notify Provider [RC] PRN Up ad Lucretia [RC] ASDIRECTED Vital Signs [RC] PER UNIT ROUTINE Consult to Building Equipment Operator [CONS] Routine DVT/VTE Prophylaxis Reflex [OM.PC] Routine Resuscitation Status Routine 11/16/17 19:55 VTE/DVT Education [RC] Click to Edit 11/16/17 19:56 Prochlorperazine [Compazine] 5 mg Sodium Chloride 0.9% [Normal Saline] 50 ml IV Q6H 11/16/17 19:57 Ondansetron [Zofran] 8 mg IVPUSH Q12H PRN 11/16/17 20:01 Weight Daily [Height and Weight] [RC] DAILY 11/16/17 20:30 Sodium Chloride 0.9% [Normal Saline] 1,000 ml IV ASDIRECTED 11/16/17 Dinner Nothing Per Oral Diet [DIET] 11/17/17 09:00 Folic Acid 1 mg SUBCUT DAILY Thiamine [Vitamin B-1] 6 mg IV DAILY - Plan Plan:: 11/16/2017 22 yo 35 3/7 weeks gestation with hyperemesis Secondary Dx-Anxiety Positive drug screen-THC and MDMA Plan- Rehydration with IV therapy NPO times first 24 hours IV Thiamine, Zofran, Folic acid, and Compazine Repeat BMP in am To get up and walk hallways Intermittent Monitoring If showers or bathes is to have supervision Plan discharge in 48-72 hours Will add IV dose of labetalol 100mg to be given now since patient did not take her BP medication today and can not resume oral medications till no longer vomiting. Will also resume all oral medications once no longer vomiting
[2017-11-16] MEDS ORDERED: Labetalol 20 MG/4 ML Syringe IVPUSH ONE (20:39)
[2017-11-16] MEDS: Prochlorperazine 5 MG in Sodium Chloride 0.9% 50 ML IV PRN (20:55)
[2017-11-16] MEDS: Sodium Chloride 0.9% 1,000 ML IV SCH (20:57)
[2017-11-17] MEDS: Prochlorperazine 5 MG in Sodium Chloride 0.9% 50 ML IV PRN (03:25)
[2017-11-17] MEDS: Sodium Chloride 0.9% 1,000 ML IV SCH (05:45)
--- NOTE | 2017-11-17 08:11 | PCM.PN ---
- General Info Date of Service: 11/17/17 - Review of Systems General: Reports: No Symptoms HEENT: Reports: No Symptoms Pulmonary: Reports: No Symptoms Cardiovascular: Reports: No Symptoms Gastrointestinal: Reports: Nausea, Vomiting Genitourinary: Reports: No Symptoms Musculoskeletal: Reports: No Symptoms Skin: Reports: No Symptoms Neurological: Reports: No Symptoms Psychiatric: Reports: No Symptoms - Patient Data Vitals - Most Recent: Last Vital Signs Temp 36.2 C 11/17/17 03:23 Pulse 92 11/17/17 03:23 Resp 20 11/17/17 03:23 BP 117/56 L 11/17/17 03:23 Pulse Ox 97 11/17/17 03:23 Weight - Most Recent: 94.347 kg I&O - Last 24 Hours: Intake & Output 11/16/17 11/17/17 11/17/17 22:59 06:59 14:59 Intake Total 50 2000 Output Total 100 Balance 50 1900 Lab Results Last 24 Hours: Laboratory Results - last 24 hr 11/16/17 11/16/17 11/16/17 Range/Units 17:36 19:54 19:54 WBC 12.0 H (4.5-11.0) K/uL RBC 4.21 (3.30-5.50) M/uL Hgb 11.3 L D (12.0-15.0) g/dL Hct 34.9 L (36.0-48.0) % MCV 83 (80-98) fL MCH 27 (27-31) pg MCHC 32 (32-36) % Plt Count 346 (150-400) K/uL Neut % (Auto) 80 H (36-66) % Lymph % (Auto) 12 L (24-44) % [place] % (Auto) 8 H (2-6) % Eos % (Auto) 0 L (2-4) % Baso % (Auto) 0 (0-1) % Sodium 136 L (140-148) mmol/L Potassium 4.0 (3.6-5.2) mmol/L Chloride 102 (100-108) mmol/L Carbon Dioxide 17 L (21-32) mmol/L Anion Gap 21.0 H (5.0-14.0) mmol/L BUN 3 L (7-18) mg/dL Creatinine 0.6 (0.6-1.0) mg/dL Est Cr Clr Drug Dosing 119.60 mL/min Estimated GFR (MDRD) > 60 (>60) Glucose 78 (74-106) mg/dL Calcium 9.2 (8.5-10.1) mg/dL Total Bilirubin 0.8 (0.2-1.0) mg/dL AST 15 (15-37) U/L ALT 14 (12-78) U/L Alkaline Phosphatase 89 (46-116) U/L Total Protein 6.9 (6.4-8.2) g/dL Albumin 2.5 L (3.4-5.0) g/dL Globulin 4.4 H (2.3-3.5) g/dL Albumin/Globulin Ratio 0.6 L (1.2-2.2) Urine Color Yellow Urine Appearance Clear Urine pH 5.0 (4.5-8.0) Ur Specific [address] 1.030 (1.008-1.030) Urine Protein Negative (NEGATIVE) mg/dL Urine Glucose (UA) Normal (NEGATIVE) mg/dL Urine Ketones 150 H (NEGATIVE) mg/dL Urine Occult Blood Negative (NEGATIVE) Urine Nitrite Negative (NEGATIVE) Urine Bilirubin Negative (NEGATIVE) Urine Urobilinogen Normal (NORMAL) mg/dL Ur Leukocyte Esterase Negative (NEGATIVE) Urine RBC 0-5 (0-5) Urine WBC 0-5 (0-5) Ur Epithelial Cells Few Amorphous Sediment Many Urine Bacteria Not seen Urine Mucus Not seen 11/17/17 Range/Units 06:00 WBC (4.5-11.0) K/uL RBC (3.30-5.50) M/uL Hgb (12.0-15.0) g/dL Hct (36.0-48.0) % MCV (80-98) fL MCH (27-31) pg MCHC (32-36) % Plt Count (150-400) K/uL Neut % (Auto) (36-66) % Lymph % (Auto) (24-44) % [place] % (Auto) (2-6) % Eos % (Auto) (2-4) % Baso % (Auto) (0-1) % Sodium 136 L (140-148) mmol/L Potassium 3.8 (3.6-5.2) mmol/L Chloride 105 (100-108) mmol/L Carbon Dioxide 13 L (21-32) mmol/L Anion Gap 21.8 H (5.0-14.0) mmol/L BUN 3 L (7-18) mg/dL Creatinine 0.6 (0.6-1.0) mg/dL Est Cr Clr Drug Dosing 119.60 mL/min Estimated GFR (MDRD) > 60 (>60) Glucose 84 (74-106) mg/dL Calcium 9.0 (8.5-10.1) mg/dL Total Bilirubin (0.2-1.0) mg/dL AST (15-37) U/L ALT (12-78) U/L Alkaline Phosphatase (46-116) U/L Total Protein (6.4-8.2) g/dL Albumin (3.4-5.0) g/dL Globulin (2.3-3.5) g/dL Albumin/Globulin Ratio (1.2-2.2) Urine Color Urine Appearance Urine pH (4.5-8.0) Ur Specific [address] (1.008-1.030) Urine Protein (NEGATIVE) mg/dL Urine Glucose (UA) (NEGATIVE) mg/dL Urine Ketones (NEGATIVE) mg/dL Urine Occult Blood (NEGATIVE) Urine Nitrite (NEGATIVE) Urine Bilirubin (NEGATIVE) Urine Urobilinogen (NORMAL) mg/dL Ur Leukocyte Esterase (NEGATIVE) Urine RBC (0-5) Urine WBC (0-5) Ur Epithelial Cells Amorphous Sediment Urine Bacteria Urine Mucus Med Orders - Current: Current Medications Folic Acid (Folic Acid) 1 mg SUBCUT DAILY [facility] Prochlorperazine Edisylate 5 (mg/ Sodium Chloride) 51 mls @ 150 mls/hr IV Q6H PRN PRN Reason: Nausea/Vomiting Last Admin: 11/17/17 03:25 Dose: 150 mls/hr Sodium Chloride (Normal Saline) 1,000 mls @ 125 mls/hr IV ASDIRECTED JAVI Last Admin: 11/17/17 05:45 Dose: 125 mls/hr Ondansetron HCl (Zofran) 8 mg IVPUSH Q12H PRN PRN Reason: Nausea/Vomiting Last Admin: 11/17/17 01:25 Dose: 8 mg Sodium Chloride (Saline Flush) 10 ml FLUSH ASDIRECTED PRN PRN Reason: Keep Vein Open Thiamine HCl (Vitamin B-1) 6 mg IV DAILY [facility] Discontinued Medications Sodium Chloride (Normal Saline) 1,000 mls @ 999 mls/hr IV .BOLUS ONE Stop: 11/16/17 19:01 Last Admin: 11/16/17 18:18 Dose: 999 mls/hr Labetalol HCl (Normodyne) 10 mg IVPUSH ONETIME ONE; Protocol Stop: 11/16/17 20:40 Last Admin: 11/16/17 21:14 Dose: 10 mg - Exam General: Alert, Oriented HEENT: Pupils Equal, Pupils Reactive, EOMI, Mucous Membr. Moist/[place] Neck: Supple Lungs: Clear to Auscultation, Normal Respiratory Effort Cardiovascular: Regular Rate, Regular Rhythm GI/Abdominal Exam: Normal Bowel Sounds, Soft, Non-Tender, No Organomegaly, No Distention, No Abnormal Bruit, No Mass, Pelvis Stable (Female) Exam: Normal External Exam, Normal Speculum Exam, Normal Bimanual Exam Back Exam: Normal Inspection, Full Range of Motion Extremities: Normal Inspection, Normal Range of Motion, Non-Tender, No Pedal Edema, Normal Capillary Refill Skin: Warm, Dry, Intact Wound/Incisions: Healing Well Neurological: No New Focal Deficit Psy/Mental Status: Alert, Normal Affect, Normal Mood - Problem List & Annotations (1) Social problem SNOMED Code(s): 175580947 Code(s): Z65.9 - PROBLEM RELATED TO UNSPECIFIED PSYCHOSOCIAL CIRCUMSTANCES Status: Acute Priority: High Current Visit: Yes (2) 35 weeks gestation of SNOMED Code(s): 85954989 Code(s): Z3A.35 - 35 WEEKS GESTATION OF Status: Acute Priority : High Current Visit: Yes (3) Anxiety SNOMED Code(s): 47005216 Code(s): F41.9 - ANXIETY DISORDER, UNSPECIFIED Status: Acute Priority: Medium Current Visit: Yes (4) Cannabis hyperemesis syndrome concurrent with and due to cannabis abuse SNOMED Code(s): 24389460358074084 Code(s): F12.188 - CANNABIS ABUSE WITH OTHER CANNABIS-INDUCED DISORDER Status: Acute Priority: High Current Visit: Yes (5) Dehydration SNOMED Code(s): 47981664 Code(s): E86.0 - DEHYDRATION Status: Acute Priority: High Current Visit : Yes (6) Hyperemesis gravidarum SNOMED Code(s): 77741262 Code(s): O21.0 - MILD HYPEREMESIS GRAVIDARUM Status: Acute Priority: High Current Visit: Yes (7) Nausea & vomiting SNOMED Code(s): 31424276 Code(s): R11.2 - NAUSEA WITH VOMITING, UNSPECIFIED Status: Acute Priority : High Current Visit: Yes (8) SNOMED Code(s): 26081126 Code(s): Z34.90 - ENCNTR FOR SUPRVSN OF NORMAL , UNSP, UNSP TRIMESTER Status: Acute Current Visit: Yes Qualifiers: Weeks of gestation: 35 weeks Qualified Code(s): Z3A.35 - 35 weeks gestation of (9) PIH ( induced hypertension), antepartum SNOMED Code(s): 50493004, 88043829 Code(s): O13.9 - GESTATIONAL HTN W/O SIGNIFICANT PROTEINURIA, UNSP TRIMESTER Status: Acute Current Visit: No - Problem List Review Problem List Initiated/Reviewed/Updated: Yes - My Orders Last 24 Hours: My Active Orders 11/16/17 17:36 URINALYSIS W/MICROSCOPIC [UA W/MICROSCOPIC] [URIN] Routine 11/16/17 18:01 Peripheral IV Care [RC] . DIRECTED Sodium Chloride 0.9% [Saline Flush] 10 ml FLUSH ASDIRECTED PRN Peripheral IV Insertion Adult [OM.PC] Routine 11/16/17 19:54 Patient Status [ADT] Routine Ambulate [RC] PER UNIT ROUTINE May Shower [RC] ASDIRECTED Notify Provider [RC] PRN Up ad Lucretia [RC] ASDIRECTED Vital Signs [RC] PER UNIT ROUTINE Consult to Awake Overnight Monitor [CONS] Routine DVT/VTE Prophylaxis Reflex [OM.PC] Routine Resuscitation Status Routine 11/16/17 19:55 VTE/DVT Education [RC] Click to Edit 11/16/17 19:56 Prochlorperazine [Compazine] 5 mg Sodium Chloride 0.9% [Normal Saline] 50 ml IV Q6H 11/16/17 19:57 Ondansetron [Zofran] 8 mg IVPUSH Q12H PRN 11/16/17 20:01 Weight Daily [Height and Weight] [RC] DAILY 11/16/17 20:30 Sodium Chloride 0.9% [Normal Saline] 1,000 ml IV ASDIRECTED 11/16/17 Dinner Nothing Per Oral Diet [DIET] 11/17/17 09:00 Folic Acid 1 mg SUBCUT DAILY Thiamine [Vitamin B-1] 6 mg IV DAILY 11/17/17 Lunch Clear Liquid Diet [DIET] - Assessment Assessment:: 11/17/2017 22 yo 35 4/7 weeks gestation with hyperemesis She has still had small amounts of emesis at times at night Secondary-Anxiety Social Problem-Positive THC and MDMA - Plan Plan:: 11/16/2017 22 yo 35 3/7 weeks gestation with hyperemesis Secondary Dx-Anxiety Positive drug screen-THC and MDMA Plan- Rehydration with IV therapy NPO times first 24 hours IV Thiamine, Zofran, Folic acid, and Compazine Repeat BMP in am To get up and walk hallways Intermittent Monitoring If showers or bathes is to have supervision Plan discharge in 48-72 hours Will add IV dose of labetalol 100mg to be given now since patient did not take her BP medication today and can not resume oral medications till no longer vomiting. Will also resume all oral medications once no longer vomiting 11/17/2017 Will initiate clear liquids If tolerates with advance to brat diet Continue intermittent FHT Will plan discharge today if tolerates diet Will resume oral medications if tolerates diet
--- NOTE | 2017-11-17 08:42 | PCM.PN ---
- General Info Date of Service: 11/17/17 - Patient Data Vitals - Most Recent: Last Vital Signs Temp 36.2 C 11/17/17 03:23 Pulse 92 11/17/17 03:23 Resp 20 11/17/17 03:23 BP 117/56 L 11/17/17 03:23 Pulse Ox 97 11/17/17 03:23 Weight - Most Recent: 94.347 kg I&O - Last 24 Hours: Intake & Output 11/16/17 11/17/17 11/17/17 22:59 06:59 14:59 Intake Total 50 2000 Output Total 100 Balance 50 1900 Lab Results Last 24 Hours: Laboratory Results - last 24 hr 11/16/17 11/16/17 11/16/17 Range/Units 17:36 19:54 19:54 WBC 12.0 H (4.5-11.0) K/uL RBC 4.21 (3.30-5.50) M/uL Hgb 11.3 L D (12.0-15.0) g/dL Hct 34.9 L (36.0-48.0) % MCV 83 (80-98) fL MCH 27 (27-31) pg MCHC 32 (32-36) % Plt Count 346 (150-400) K/uL Neut % (Auto) 80 H (36-66) % Lymph % (Auto) 12 L (24-44) % [place] % (Auto) 8 H (2-6) % Eos % (Auto) 0 L (2-4) % Baso % (Auto) 0 (0-1) % Sodium 136 L (140-148) mmol/L Potassium 4.0 (3.6-5.2) mmol/L Chloride 102 (100-108) mmol/L Carbon Dioxide 17 L (21-32) mmol/L Anion Gap 21.0 H (5.0-14.0) mmol/L BUN 3 L (7-18) mg/dL Creatinine 0.6 (0.6-1.0) mg/dL Est Cr Clr Drug Dosing 119.60 mL/min Estimated GFR (MDRD) > 60 (>60) Glucose 78 (74-106) mg/dL Calcium 9.2 (8.5-10.1) mg/dL Total Bilirubin 0.8 (0.2-1.0) mg/dL AST 15 (15-37) U/L ALT 14 (12-78) U/L Alkaline Phosphatase 89 (46-116) U/L Total Protein 6.9 (6.4-8.2) g/dL Albumin 2.5 L (3.4-5.0) g/dL Globulin 4.4 H (2.3-3.5) g/dL Albumin/Globulin Ratio 0.6 L (1.2-2.2) Urine Color Yellow Urine Appearance Clear Urine pH 5.0 (4.5-8.0) Ur Specific [place] 1.030 (1.008-1.030) Urine Protein Negative (NEGATIVE) mg/dL Urine Glucose (UA) Normal (NEGATIVE) mg/dL Urine Ketones 150 H (NEGATIVE) mg/dL Urine Occult Blood Negative (NEGATIVE) Urine Nitrite Negative (NEGATIVE) Urine Bilirubin Negative (NEGATIVE) Urine Urobilinogen Normal (NORMAL) mg/dL Ur Leukocyte Esterase Negative (NEGATIVE) Urine RBC 0-5 (0-5) Urine WBC 0-5 (0-5) Ur Epithelial Cells Few Amorphous Sediment Many Urine Bacteria Not seen Urine Mucus Not seen 11/17/17 Range/Units 06:00 WBC (4.5-11.0) K/uL RBC (3.30-5.50) M/uL Hgb (12.0-15.0) g/dL Hct (36.0-48.0) % MCV (80-98) fL MCH (27-31) pg MCHC (32-36) % Plt Count (150-400) K/uL Neut % (Auto) (36-66) % Lymph % (Auto) (24-44) % [place] % (Auto) (2-6) % Eos % (Auto) (2-4) % Baso % (Auto) (0-1) % Sodium 136 L (140-148) mmol/L Potassium 3.8 (3.6-5.2) mmol/L Chloride 105 (100-108) mmol/L Carbon Dioxide 13 L (21-32) mmol/L Anion Gap 21.8 H (5.0-14.0) mmol/L BUN 3 L (7-18) mg/dL Creatinine 0.6 (0.6-1.0) mg/dL Est Cr Clr Drug Dosing 119.60 mL/min Estimated GFR (MDRD) > 60 (>60) Glucose 84 (74-106) mg/dL Calcium 9.0 (8.5-10.1) mg/dL Total Bilirubin (0.2-1.0) mg/dL AST (15-37) U/L ALT (12-78) U/L Alkaline Phosphatase (46-116) U/L Total Protein (6.4-8.2) g/dL Albumin (3.4-5.0) g/dL Globulin (2.3-3.5) g/dL Albumin/Globulin Ratio (1.2-2.2) Urine Color Urine Appearance Urine pH (4.5-8.0) Ur Specific [place] (1.008-1.030) Urine Protein (NEGATIVE) mg/dL Urine Glucose (UA) (NEGATIVE) mg/dL Urine Ketones (NEGATIVE) mg/dL Urine Occult Blood (NEGATIVE) Urine Nitrite (NEGATIVE) Urine Bilirubin (NEGATIVE) Urine Urobilinogen (NORMAL) mg/dL Ur Leukocyte Esterase (NEGATIVE) Urine RBC (0-5) Urine WBC (0-5) Ur Epithelial Cells Amorphous Sediment Urine Bacteria Urine Mucus Med Orders - Current: Current Medications Folic Acid (Folic Acid) 1 mg SUBCUT DAILY [facility] Prochlorperazine Edisylate 5 (mg/ Sodium Chloride) 51 mls @ 150 mls/hr IV Q6H PRN PRN Reason: Nausea/Vomiting Last Admin: 11/17/17 03:25 Dose: 150 mls/hr Sodium Chloride (Normal Saline) 1,000 mls @ 125 mls/hr IV ASDIRECTED JAVI Last Admin: 11/17/17 05:45 Dose: 125 mls/hr Ondansetron HCl (Zofran) 8 mg IVPUSH Q12H PRN PRN Reason: Nausea/Vomiting Last Admin: 11/17/17 01:25 Dose: 8 mg Sodium Chloride (Saline Flush) 10 ml FLUSH ASDIRECTED PRN PRN Reason: Keep Vein Open Thiamine HCl (Vitamin B-1) 6 mg IV DAILY [facility]I Discontinued Medications Sodium Chloride (Normal Saline) 1,000 mls @ 999 mls/hr IV .BOLUS ONE Stop: 11/16/17 19:01 Last Admin: 11/16/17 18:18 Dose: 999 mls/hr Labetalol HCl (Normodyne) 10 mg IVPUSH ONETIME ONE; Protocol Stop: 11/16/17 20:40 Last Admin: 11/16/17 21:14 Dose: 10 mg - Problem List & Annotations (1) Social problem SNOMED Code(s): 032889339 Code(s): Z65.9 - PROBLEM RELATED TO UNSPECIFIED PSYCHOSOCIAL CIRCUMSTANCES Status: Acute Priority: High Current Visit: Yes (2) 35 weeks gestation of SNOMED Code(s): 85200016 Code(s): Z3A.35 - 35 WEEKS GESTATION OF Status: Acute Priority : High Current Visit: Yes (3) Anxiety SNOMED Code(s): 78771717 Code(s): F41.9 - ANXIETY DISORDER, UNSPECIFIED Status: Acute Priority: Medium Current Visit: Yes (4) Cannabis hyperemesis syndrome concurrent with and due to cannabis abuse SNOMED Code(s): 09660107772066838 Code(s): F12.188 - CANNABIS ABUSE WITH OTHER CANNABIS-INDUCED DISORDER Status: Acute Priority: High Current Visit: Yes (5) Dehydration SNOMED Code(s): 01574999 Code(s): E86.0 - DEHYDRATION Status: Acute Priority: High Current Visit : Yes (6) Hyperemesis gravidarum SNOMED Code(s): 75828279 Code(s): O21.0 - MILD HYPEREMESIS GRAVIDARUM Status: Acute Priority: High Current Visit: Yes (7) Nausea & vomiting SNOMED Code(s): 64085320 Code(s): R11.2 - NAUSEA WITH VOMITING, UNSPECIFIED Status: Acute Priority : High Current Visit: Yes (8) SNOMED Code(s): 20124865 Code(s): Z34.90 - ENCNTR FOR SUPRVSN OF NORMAL , UNSP, UNSP TRIMESTER Status: Acute Current Visit: Yes Qualifiers: Weeks of gestation: 35 weeks Qualified Code(s): Z3A.35 - 35 weeks gestation of (9) PIH ( induced hypertension), antepartum SNOMED Code(s): 58183595, 82735352 Code(s): O13.9 - GESTATIONAL HTN W/O SIGNIFICANT PROTEINURIA, UNSP TRIMESTER Status: Acute Current Visit: No - Problem List Review Problem List Initiated/Reviewed/Updated: Yes - My Orders Last 24 Hours: My Active Orders 11/16/17 17:36 URINALYSIS W/MICROSCOPIC [UA W/MICROSCOPIC] [URIN] Routine 11/16/17 18:01 Peripheral IV Care [RC] . DIRECTED Sodium Chloride 0.9% [Saline Flush] 10 ml FLUSH ASDIRECTED PRN Peripheral IV Insertion Adult [OM.PC] Routine 11/16/17 19:54 Patient Status [ADT] Routine Ambulate [RC] PER UNIT ROUTINE May Shower [RC] ASDIRECTED Notify Provider [RC] PRN Up ad Lucretia [RC] ASDIRECTED Vital Signs [RC] PER UNIT ROUTINE Consult to Vice President [employer] [CONS] Routine DVT/VTE Prophylaxis Reflex [OM.PC] Routine Resuscitation Status Routine 11/16/17 19:55 VTE/DVT Education [RC] Click to Edit 11/16/17 19:56 Prochlorperazine [Compazine] 5 mg Sodium Chloride 0.9% [Normal Saline] 50 ml IV Q6H 11/16/17 19:57 Ondansetron [Zofran] 8 mg IVPUSH Q12H PRN 11/16/17 20:01 Weight Daily [Height and Weight] [RC] DAILY 11/16/17 20:30 Sodium Chloride 0.9% [Normal Saline] 1,000 ml IV ASDIRECTED 11/16/17 Dinner Nothing Per Oral Diet [DIET] 11/17/17 09:00 Folic Acid 1 mg SUBCUT DAILY Thiamine [Vitamin B-1] 6 mg IV DAILY 11/17/17 Lunch Clear Liquid Diet [DIET] - Assessment Assessment:: 11/17/2017 22 yo 35 4/7 weeks gestation with hyperemesis She has still had small amounts of emesis at times at night Secondary-Anxiety Social Problem-Positive THC and MDMA - Plan Plan:: 11/16/2017 22 yo 35 3/7 weeks gestation with hyperemesis Secondary Dx-Anxiety Positive drug screen-THC and MDMA Plan- Rehydration with IV therapy NPO times first 24 hours IV Thiamine, Zofran, Folic acid, and Compazine Repeat BMP in am To get up and walk hallways Intermittent Monitoring If showers or bathes is to have supervision Plan discharge in 48-72 hours Will add IV dose of labetalol 100mg to be given now since patient did not take her BP medication today and can not resume oral medications till no longer vomiting. Will also resume all oral medications once no longer vomiting 11/17/2017 Will initiate clear liquids If tolerates with advance to brat diet Continue intermittent T Will plan discharge today if tolerates diet Will resume oral medications if tolerates diet 11/17/2017 Tolerating clear liquids Will advance diet Ok to discharge home today To follow up with Jenn Oliva on Saturday if symptoms return To resume oral medications
[2017-11-17] MEDS ORDERED: Folic Acid 50 MG/10 ML MDV SUBCUT SCH (09:00)
[2017-11-17] MEDS ORDERED: Thiamine 200 MG/2 ML MDV IV SCH (09:00)
[2017-11-17 12:05] VITALS: BP 105/63
== END 2017-11-17 12:30 | disposition home or self-care (01) | DRG 781 ==
LOC: JP.OBCHECK 17:28 → JP.OB 19:54
PROVIDERS: ADMIT Advanced Practice Midwife; ATTEND Advanced Practice Midwife
DX: O21.1 Hyperemesis gravidarum with metabolic disturbance (principal); O99.340 Other mental disorders complicating pregnancy, unspecified trimester; F41.9 Anxiety disorder, unspecified; O99.519 Diseases of the respiratory system complicating pregnancy, unspecified trimester; O99.320 Drug use complicating pregnancy, unspecified trimester; F12.188 Cannabis abuse with other cannabis-induced disorder; Z3A.35 35 weeks gestation of pregnancy; E86.0 Dehydration; J45.909 Unspecified asthma, uncomplicated; Z88.8 Allergy status to other drugs, medicaments and biological substances; O13.9 Gestational [pregnancy-induced] hypertension without significant proteinuria, unspecified trimester; Z65.9 Problem related to unspecified psychosocial circumstances
CPT/HCPCS: 36415; 80048; 80053; 81001; 85025; 99211; J0780; J2405; J7030; J7050

== ENCOUNTER 2017-12-06 07:04 | Inpatient (IN) | payer MEDICAID ==
[2017-12-06] MEDS ORDERED: Misoprostol 50 MCG (1/2 of 100 MCG) Tab VAG ONE (07:58)
[2017-12-06] MEDS ORDERED: Penicillin G Potassium 5 MILLUNITS in Sodium Chloride 0.9% 100 ML IV ONE (08:00)
[2017-12-06] MEDS ORDERED: fentaNYL 100 MCG/2 ML SDV IVPUSH PRN (08:15)
[2017-12-06] MEDS ORDERED: Acetaminophen 325 MG Tab PO PRN (08:15)
[2017-12-06] MEDS ORDERED: Sodium Chloride 0.9% 10 ML Syringe FLUSH PRN (08:15)
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
[2017-12-06] MEDS: Penicillin G Potassium 2.5 MILLUNITS in Sodium Chloride 0.9% 50 ML IV SCH ×3 (12:18→22:32)
--- NOTE | 2017-12-06 12:30 | PCM.PNLD ---
Labor Progress Note - VS & Meds Vital Signs: Last Vital Signs Temp 97.1 F 12/06/17 07:04 Pulse 75 12/06/17 09:00 Resp 18 12/06/17 09:00 BP 132/84 12/06/17 09:00 Pulse Ox 98 12/06/17 09:00 Active Medications: Current Medications Acetaminophen (Tylenol) 650 mg PO Q4H PRN PRN Reason: Pain (Mild 1-3) and fever Fentanyl (Sublimaze) 100 mcg IVPUSH Q1H PRN PRN Reason: Pain (moderate 4-6) Penicillin G Potassium 2.5 (millunits/ Sodium Chloride) 50 mls @ 100 mls/hr IV Q4H JAVI Last Admin: 12/06/17 12:18 Dose: 100 mls/hr Ondansetron HCl (Zofran Odt) 4 mg PO Q4H PRN PRN Reason: Nausea/Vomiting Sodium Chloride (Saline Flush) 10 ml FLUSH ASDIRECTED PRN PRN Reason: Keep Vein Open Discontinued Medications Penicillin G Potassium 5 (millunits/ Sodium Chloride) 100 mls @ 100 mls/hr IV ONETIME ONE Stop: 12/06/17 08:59 Last Admin: 12/06/17 08:20 Dose: 100 mls/hr Oxytocin/Sodium Chloride (Pitocin In Ns 20 Units/1,000 Ml) 20 unit in 1,000 mls @ 999 mls/hr IV ONETIME ONE; Protocol Stop: 12/06/17 11:30 Misoprostol (Cytotec) 50 mcg VAG ONETIME ONE Stop: 12/06/17 07:59 Last Admin: 12/06/17 08:05 Dose: 50 mcg - Uterine Contractions Uterine Monitoring Mode: External [place] Contraction Frequency (min): 2-3 Contraction Duration (sec): 40-50 Contraction Intensity: Mild Uterine Resting Tone: Soft - Monitoring Monitor Mode: Doppler/Auscultation Heart Rate (FHR) Baseline: 130 Heart Rate (FHR) Variability: Moderate (6-25 bmp) Accelerations: Present, 15x15 Decelerations: None - Vaginal Exam Dilation (cm): 4 Effacement (Percent): 80 Station: 0 Cervical Position: Anterior Sterile Vaginal Exam Performed By: Jenn Purvis - Labor Progress (Free Text) Labor Progress: SROM at 1210. large amount clear fluid. Michelle DOUGHERTY checked her and she is 4 cm contractions strong but coping well May want an epidural after bit.
[2017-12-06] MEDS ORDERED: Lactated Ringers 1,000 ML IV SCH (13:45)
[2017-12-06] MEDS ORDERED: Ropivacaine HCl/PF 200 ML ONE (14:37)
[2017-12-06] MEDS ORDERED: Ibuprofen 600 MG Tab PO PRN (15:26)
[2017-12-06] MEDS ORDERED: Lanolin 100% Cream 40 GM Tube TOP PRN (15:26)
--- NOTE | 2017-12-06 17:14 | PCM.DEL ---
L & D Note - General Info Date of Service: 12/06/17 (delivery) Mother's Due Date: 12/13/17 - Delivery Note Labor: Spontaneous Cervical Ripening Method: Misoprostil Delivery Outcome: Livebirth Infant Delivery Method: Spontaneous Vaginal Delivery-Single Delivery Mode: Spontaneous Presentation: Vertex Nuchal Cord: None Anesthesia Type: Epidural Amniotic Fluid Description: Clear Episiotomy Type: None Laceration: 1st Degree, Perineal Suture type: Vicryl Suture size: 3-0 Placenta: Intact, Spontaneous Cord: 3 Vessels Estimated Blood Loss: 200 Resuscitation Needed: No : Suctioned, Bulb Syringe, Cathether, Stimulated, Warmed, Hollis Used Provider: Jenn Purvis Score 1 min: 9 Score 5 min: 9 Second Stage Interventions: Reports: Second Nurse Reviewed Heart Tones, Laboring Down, Pushing Effectively, Pushing, McRobert's Position Delivery Comments (Free Text/Narrative):: 12/06/17 This 22 year old G2 Now P2 who is 39 weeks gestation delivered via at 1503 in APRIL position. A male was placed on mother's abdomen where he cried spontaneously. Delayed cord clamping. The cord was then double clamped and cut. Cord blood was obtained. He was dried and stimulated, Bulb suctioned. Apgars of 9,9. Three vessel cord. The placenta was expressed spontaneously intact. There was a first degree perineal tear which was repaired with 3-0 vicryl in standard fashion. No lacerations of the cervix, rectum or vagina were found. EBL 200 cc Weight 7-11 Mother and baby to post and nursery in stable condition. First stage 7199-7812 Second stage 3232-6442 Third stage 0280-1791 Induction Criteria - Muller Score Muller Score Dilation: 1-2 cm Muller Score Effacement: >80% Muller Score 's Station: -1 ,0 Muller Score Consistency: Soft Muller Score Cervix Position: Anterior Muller Score Total: 10 Muller Score Presenting Part: Reports: Cephalic - Induction Gestational Age >/= 39 wks: Yes Estimated Pelvis: Reports: Adequate Reassuring Monitoring Strip: Yes Absence of Tachy Systole: Yes - General Info Date of Service: 12/06/17 Admission Dx/Problem (Free Text): Patient Status Order with Admit Dx/Problem 12/06/17 08:15 Patient Status [ADT] Routine Admission Diagnosis/Problem Admission Diagnosis/Problem induced hypertension, antepartum Functional Status: Reports: Pain Controlled - Review of Systems General: Reports: No Symptoms HEENT: Reports: No Symptoms Pulmonary: Reports: No Symptoms Cardiovascular: Reports: No Symptoms Gastrointestinal: Reports: No Symptoms Genitourinary: Reports: No Symptoms Musculoskeletal: Reports: No Symptoms Skin: Reports: No Symptoms Neurological: Reports: No Symptoms Psychiatric: Reports: No Symptoms - Patient Data Vitals - Most Recent: Last Vital Signs Temp 97.8 F 12/06/17 15:45 Pulse 106 H 12/06/17 16:00 Resp 16 12/06/17 16:00 BP 103/65 12/06/17 16:00 Pulse Ox 98 12/06/17 14:50 Weight - Most Recent: 214 lb I&O - Last 24 Hours: Intake & Output 12/06/17 12/06/17 12/06/17 06:59 14:59 22:59 Intake Total 150 Output Total 600 Balance -600 150 Lab Results Last 24 Hours: Laboratory Results - last 24 hr 12/06/17 12/06/17 12/06/17 Range/Units 07:19 07:20 07:24 WBC 7.8 (4.5-11.0) K/uL RBC 3.51 (3.30-5.50) M/uL Hgb 8.9 L D (12.0-15.0) g/dL Hct 28.8 L (36.0-48.0) % MCV 82 (80-98) fL MCH 25 L (27-31) pg MCHC 31 L (32-36) % Plt Count 192 (150-400) K/uL Neut % (Auto) 66 (36-66) % Lymph % (Auto) 27 (24-44) % [place] % (Auto) 5 (2-6) % Eos % (Auto) 2 (2-4) % Baso % (Auto) 0 (0-1) % BUN (7-18) mg/dL Creatinine (0.6-1.0) mg/dL Est Cr Clr Drug Dosing mL/min Estimated GFR (MDRD) (>60) Uric Acid (2.6-6.2) mg/dL AST (15-37) U/L ALT (12-78) U/L Lactate Dehydrogenase (82-234) U/L Urine Color Yellow Urine Appearance Cloudy Urine pH 7.0 (4.5-8.0) Ur Specific [place] 1.010 (1.008-1.030) Urine Protein Negative (NEGATIVE) mg/dL Urine Glucose (UA) Normal (NEGATIVE) mg/dL Urine Ketones Negative (NEGATIVE) mg/dL Urine Occult Blood Negative (NEGATIVE) Urine Nitrite Negative (NEGATIVE) Urine Bilirubin Negative (NEGATIVE) Urine Urobilinogen Normal (NORMAL) mg/dL Ur Leukocyte Esterase Moderate (NEGATIVE) Urine RBC Not seen (0-5) Urine WBC 0-5 (0-5) Ur Epithelial Cells Moderate Amorphous Sediment Not seen Urine Bacteria Moderate Urine Mucus Few Membrane Rupture (NEGATIVE) Urine Opiates Screen Negative (NEGATIVE) Ur Oxycodone Screen Negative (NEGATIVE) Urine Methadone Screen Negative (NEGATIVE) Ur Propoxyphene Screen Negative (NEGATIVE) Ur Barbiturates Screen Negative (NEGATIVE) Ur Tricyclics Screen Negative (NEGATIVE) Ur Phencyclidine Scrn Negative (NEGATIVE) Ur Amphetamine Screen Negative (NEGATIVE) U Methamphetamines Scrn Negative (NEGATIVE) Urine MDMA Screen Negative (NEGATIVE) U Benzodiazepines Scrn Negative (NEGATIVE) U Cocaine Metab Screen Negative (NEGATIVE) U Marijuana (THC) Screen Negative (NEGATIVE) 12/06/17 12/06/17 Range/Units 08:21 12:16 WBC (4.5-11.0) K/uL RBC (3.30-5.50) M/uL Hgb (12.0-15.0) g/dL Hct (36.0-48.0) % MCV (80-98) fL MCH (27-31) pg MCHC (32-36) % Plt Count (150-400) K/uL Neut % (Auto) (36-66) % Lymph % (Auto) (24-44) % Bee % (Auto) (2-6) % Eos % (Auto) (2-4) % Baso % (Auto) (0-1) % BUN 6 L D (7-18) mg/dL Creatinine 0.6 (0.6-1.0) mg/dL Est Cr Clr Drug Dosing 119.60 mL/min Estimated GFR (MDRD) > 60 (>60) Uric Acid 4.0 (2.6-6.2) mg/dL AST 10 L (15-37) U/L ALT 13 (12-78) U/L Lactate Dehydrogenase 145 (82-234) U/L Urine Color Urine Appearance Urine pH (4.5-8.0) Ur Specific [place] (1.008-1.030) Urine Protein (NEGATIVE) mg/dL Urine Glucose (UA) (NEGATIVE) mg/dL Urine Ketones (NEGATIVE) mg/dL Urine Occult Blood (NEGATIVE) Urine Nitrite (NEGATIVE) Urine Bilirubin (NEGATIVE) Urine Urobilinogen (NORMAL) mg/dL Ur Leukocyte Esterase (NEGATIVE) Urine RBC (0-5) Urine WBC (0-5) Ur Epithelial Cells Amorphous Sediment Urine Bacteria Urine Mucus Membrane Rupture Positive H (NEGATIVE) Urine Opiates Screen (NEGATIVE) Ur Oxycodone Screen (NEGATIVE) Urine Methadone Screen (NEGATIVE) Ur Propoxyphene Screen (NEGATIVE) Ur Barbiturates Screen (NEGATIVE) Ur Tricyclics Screen (NEGATIVE) Ur Phencyclidine Scrn (NEGATIVE) Ur Amphetamine Screen (NEGATIVE) U Methamphetamines Scrn (NEGATIVE) Urine MDMA Screen (NEGATIVE) U Benzodiazepines Scrn (NEGATIVE) U Cocaine Metab Screen (NEGATIVE) U Marijuana (THC) Screen (NEGATIVE) Med Orders - Current: Current Medications Acetaminophen (Tylenol) 650 mg PO Q4H PRN PRN Reason: Pain (Mild 1-3) and fever Emollient Ointment (Lansinoh Hpa) 1 gm TOP ASDIRECTED PRN PRN Reason: Sore Nipples Fentanyl (Sublimaze) 100 mcg IVPUSH Q1H PRN PRN Reason: Pain (moderate 4-6) Last Admin: 12/06/17 12:55 Dose: 100 mcg Penicillin G Potassium 2.5 (millunits/ Sodium Chloride) 50 mls @ 100 mls/hr IV Q4H [facility] Last Admin: 12/06/17 12:18 Dose: 100 mls/hr Lactated Ringer's (Ringers, Lactated) 1,000 mls @ 100 mls/hr IV ASDIRECTED [facility] Last Admin: 12/06/17 13:40 Dose: 100 mls/hr Ibuprofen (Motrin) 600 mg PO Q6H PRN PRN Reason: mild pain or fever Ondansetron HCl (Zofran Odt) 4 mg PO Q4H PRN PRN Reason: Nausea/Vomiting Sodium Chloride (Saline Flush) 10 ml FLUSH ASDIRECTED PRN PRN Reason: Keep Vein Open Discontinued Medications Penicillin G Potassium 5 (millunits/ Sodium Chloride) 100 mls @ 100 mls/hr IV ONETIME ONE Stop: 12/06/17 08:59 Last Admin: 12/06/17 08:20 Dose: 100 mls/hr Oxytocin/Sodium Chloride (Pitocin In Ns 20 Units/1,000 Ml) 20 unit in 1,000 mls @ 999 mls/hr IV ONETIME ONE; Protocol Stop: 12/06/17 11:30 Ropivacaine (Naropin 0.2%) Confirm Administered Dose 200 mls @ as directed .ROUTE .STK-MED ONE Stop: 12/06/17 14:38 Misoprostol (Cytotec) 50 mcg VAG ONETIME ONE Stop: 12/06/17 07:59 Last Admin: 12/06/17 08:05 Dose: 50 mcg - Exam General: Alert, Oriented HEENT: Pupils Equal, Pupils Reactive, EOMI, Mucous Membr. Moist/[place] Neck: Supple Lungs: Clear to Auscultation, Normal Respiratory Effort Cardiovascular: Regular Rate, Regular Rhythm GI/Abdominal Exam: Normal Bowel Sounds, Soft, Non-Tender, No Organomegaly, No Distention, No Abnormal Bruit, No Mass, Pelvis Stable (Female) Exam: Normal External Exam, Cervical Dilatation, Enlarged Uterus, Vaginal Bleeding Back Exam: Normal Inspection, Full Range of Motion Extremities: Normal Inspection, Normal Range of Motion, Non-Tender, No Pedal Edema, Normal Capillary Refill Skin: Warm, Dry, Intact Wound/Incisions: Healing Well Neurological: No New Focal Deficit Psy/Mental Status: Alert, Normal Affect, Normal Mood - Problem List & Annotations (1) Anxiety SNOMED Code(s): 67988761 Code(s): F41.9 - ANXIETY DISORDER, UNSPECIFIED Status: Acute Priority: Medium Current Visit: No (2) SNOMED Code(s): 39818338 Code(s): Z34.90 - ENCNTR FOR SUPRVSN OF NORMAL , UNSP, UNSP TRIMESTER Status: Acute Current Visit: Yes Qualifiers: Weeks of gestation: 39 weeks Qualified Code(s): Z3A.39 - 39 weeks gestation of (3) PIH ( induced hypertension), antepartum SNOMED Code(s): 15302628, 36355217 Code(s): O13.9 - GESTATIONAL HTN W/O SIGNIFICANT PROTEINURIA, UNSP TRIMESTER Status: Acute Current Visit: Yes - Problem List Review Problem List Initiated/Reviewed/Updated: Yes - My Orders Last 24 Hours: My Active Orders 12/06/17 07:19 UA W/MICROSCOPIC [URIN] Routine 12/06/17 07:20 DRUG SCREEN, URINE [URCHEM] Routine 12/06/17 08:15 Ambulate [RC] PER UNIT ROUTINE Communication Order [RC] ASDIRECTED Heart Tones [RC] PER UNIT ROUTINE May Shower [RC] ASDIRECTED Notify Provider Vital Signs [RC] PRN Notify Provider [RC] PRN Up ad Lucretia [RC] ASDIRECTED Vital Signs [RC] PER UNIT ROUTINE Acetaminophen [Tylenol] 650 mg PO Q4H PRN Ondansetron [Zofran ODT] 4 mg PO Q4H PRN Sodium Chloride 0.9% [Saline Flush] 10 ml FLUSH ASDIRECTED PRN fentaNYL [Sublimaze] 100 mcg IVPUSH Q1H PRN DVT/VTE Prophylaxis Reflex [OM.PC] Routine PIH Panel [OM.PC] Urgent Saline Lock Insert [OM.PC] Routine Resuscitation Status Routine 12/06/17 08:18 Antiembolic Devices [RC] .Routine 12/06/17 12:00 Penicillin G Potassium [Pfizerpen] 2.5 millunits Sodium Chloride 0.9% [Normal Saline] 50 ml IV Q4H 12/06/17 12:16 AMNISURE RUPTURE MEMBRAN [BF] Routine 12/06/17 13:45 Lactated Ringers [Ringers, Lactated] 1,000 ml IV ASDIRECTED 12/06/17 14:04 PCEA Epidural [RC] ASDIRECTED PCEA Epidural [RC] ASDIRECTED Epidural Catheter Management [OM.PC] Urgent 12/06/17 15:26 Patient Status [ADT] Routine Vital Signs [RC] PFP Ibuprofen [Motrin] 600 mg PO Q6H PRN Lanolin [Lansinoh HPA] 1 gm TOP ASDIRECTED PRN Assess Lochia [WOMSER] Per Unit Routine Assess Uterine Involution [WOMSER] Per Unit Routine 12/06/17 15:27 Ice Therapy [OM.PC] Per Unit Routine Perineal Care [OM.PC] Per Unit Routine Peripheral IV Discontinue [OM.PC] Routine Sitz Bath [OM.PC] Per Unit Routine 12/06/17 15:29 Oxygen Therapy [RC] ASDIRECTED 12/06/17 Breakfast Regular Diet [DIET] 12/07/17 05:11 CBC WITH AUTO DIFF [HEME] AM - Assessment Assessment:: 12/06/17 22 year old without complication Breast feeding GBS positive, treated - Plan Plan:: 12/06/17 22 year old 38-39 weeks gestation induction for PIH, GDM, hyperemsis HGB 8.9 PLT 192 GBS pos, treated ABO A pos Rubella Immune misoprostol 50 MCG at 0800 12/06/17 Routine cares 48 hour stay support breast feeding
[2017-12-06] MEDS: Ondansetron 4 MG Tab.DIS PO PRN (17:44)
--- NOTE | 2017-12-07 00:50 | ANES ---
DATE OF SERVICE: 12/06/2017 LABOR EPIDURAL NOTE INDICATIONS: Yuko is a 22-year-old female patient that I was called in for a labor epidural for labor pains. History and physical was obtained. She does have a history of high blood pressure or hypertension with the , but no preeclamptic symptoms. Denies any abnormal bleeding issues. Platelet count was 192. No gestational diabetes. Does have some heartburn and acid reflux. Risks and benefits reviewed with the patient and regarding a labor epidural. Patient agrees with the risks and the benefits and wishes to proceed with the labor epidural. DESCRIPTION OF PROCEDURE: Yuko was then sat at the edge of the bed. Betadine prep to the lumbar region was done. A 17-gauge Tuohy needle was inserted at approximately the L4-L5 space. I was unable to obtain loss of resistance at that area, so I moved up one spot to the L3-L4 space where I did 1% lidocaine skin wheal and inserted a 17-gauge Tuohy needle. Loss of resistance was achieved at approximately 7 to 7.5 cm. Negative paresthesia, negative heme, negative CSF were noted. Catheter was then placed. Tuohy needle was withdrawn. Catheter was then pulled back to 14 cm. I then proceeded to give a 3 mL test dose. Catheter was then taped into place at 14 cm. The patient then was laid supine with head of the bed slightly elevated and left uterine displacement. Test dose was negative. The patient showed no signs of local anesthetic toxicity or intravascular local injection. I then proceeded to give 12 mL of 0.2% ropivacaine via the epidural. I then started her on 0.2% ropivacaine drip at 12 mL an hour. The patient was already having some relief via the epidural. The patient stated that she was comfortable. Vital signs were stable as I left. The nurses will monitor patient closely. Please refer to the nurse's notes for vital signs. Hipolito Díaz CRNA /[id number]
[2017-12-07] MEDS: Ondansetron 4 MG Tab.DIS PO PRN (01:04)
--- NOTE | 2017-12-07 09:34 | PCM.PNPP ---
- General Info Date of Service: 12/07/17 Admission Dx/Problem (Free Text): Patient Status Order with Admit Dx/Problem 12/06/17 08:15 Patient Status [ADT] Routine Admission Diagnosis/Problem Admission Diagnosis/Problem induced hypertension, antepartum Functional Status: Reports: Pain Controlled - Review of Systems General: Reports: No Symptoms HEENT: Reports: No Symptoms Pulmonary: Reports: No Symptoms Cardiovascular: Reports: No Symptoms Gastrointestinal: Reports: Nausea Genitourinary: Reports: No Symptoms Musculoskeletal: Reports: No Symptoms Skin: Reports: No Symptoms Neurological: Reports: No Symptoms Psychiatric: Reports: No Symptoms - General Info Date of Service: 12/07/17 - Patient Data Vital Signs - Most Recent: Last Vital Signs Temp 97.0 F 12/07/17 08:01 Pulse 77 12/07/17 08:01 Resp 18 12/07/17 08:01 BP 108/64 12/07/17 08:01 Pulse Ox 98 12/07/17 08:01 Weight - Most Recent: 214 lb I&O - Last 24 Hours: Intake & Output 12/06/17 12/07/17 12/07/17 22:59 06:59 14:59 Intake Total 650 200 Output Total 400 Balance 250 200 Lab Results - Last 24 Hours: Laboratory Results - last 24 hr 12/06/17 12/07/17 Range/Units 12:16 05:11 WBC 12.8 H (4.5-11.0) K/uL RBC 4.23 (3.30-5.50) M/uL Hgb 10.9 L D (12.0-15.0) g/dL Hct 34.1 L (36.0-48.0) % MCV 81 (80-98) fL MCH 26 L (27-31) pg MCHC 32 (32-36) % Plt Count 231 (150-400) K/uL Neut % (Auto) 79 H (36-66) % Lymph % (Auto) 14 L (24-44) % [place] % (Auto) 6 (2-6) % Eos % (Auto) 1 L (2-4) % Baso % (Auto) 0 (0-1) % Membrane Rupture Positive H (NEGATIVE) Med Orders - Current: Current Medications Acetaminophen (Tylenol) 650 mg PO Q4H PRN PRN Reason: Pain (Mild 1-3) and fever Last Admin: 12/06/17 17:46 Dose: 650 mg Emollient Ointment (Lansinoh Hpa) 1 gm TOP ASDIRECTED PRN PRN Reason: Sore Nipples Fentanyl (Sublimaze) 100 mcg IVPUSH Q1H PRN PRN Reason: Pain (moderate 4-6) Last Admin: 12/06/17 12:55 Dose: 100 mcg Lactated Ringer's (Ringers, Lactated) 1,000 mls @ 100 mls/hr IV ASDIRECTED JAVI Last Admin: 12/06/17 13:40 Dose: 100 mls/hr Ibuprofen (Motrin) 600 mg PO Q6H PRN PRN Reason: mild pain or fever Ondansetron HCl (Zofran Odt) 4 mg PO Q4H PRN PRN Reason: Nausea/Vomiting Last Admin: 12/07/17 01:04 Dose: 4 mg Sodium Chloride (Saline Flush) 10 ml FLUSH ASDIRECTED PRN PRN Reason: Keep Vein Open Discontinued Medications Penicillin G Potassium 5 (millunits/ Sodium Chloride) 100 mls @ 100 mls/hr IV ONETIME ONE Stop: 12/06/17 08:59 Last Admin: 12/06/17 08:20 Dose: 100 mls/hr Penicillin G Potassium 2.5 (millunits/ Sodium Chloride) 50 mls @ 100 mls/hr IV Q4H [facility] Last Admin: 12/06/17 22:32 Dose: Not Given Oxytocin/Sodium Chloride (Pitocin In Ns 20 Units/1,000 Ml) 20 unit in 1,000 mls @ 999 mls/hr IV ONETIME ONE; Protocol Stop: 12/06/17 11:30 Last Admin: 12/06/17 15:05 Dose: 999 mls/hr, 999 mls/hr Ropivacaine (Naropin 0.2%) Confirm Administered Dose 200 mls @ as directed .ROUTE .STK-MED ONE Stop: 12/06/17 14:38 Misoprostol (Cytotec) 50 mcg VAG ONETIME ONE Stop: 12/06/17 07:59 Last Admin: 12/06/17 08:05 Dose: 50 mcg - Infant Interaction Disposition, : [place] in Room with Family Interaction: Holding Feeding: Attempted ; Nursed Fair/Poor Support Person: - Recovery Exam Fundal Tone: Firm Fundal Level: At Umbilicus Fundal Placement: Right Lochia Amount: Small Lochia Color: Rubra/Red Perineum Description: Intact, Minimal Bruising/Swelling, Ecchymotic Episiotomy/Laceration: Approximated Bladder Status: Palpable Urinary Elimination: Voided - Exam General: Alert, Oriented HEENT: Pupils Equal Neck: Supple Lungs: Clear to Auscultation, Normal Respiratory Effort Cardiovascular: Regular Rate, Regular Rhythm GI/Abdominal Exam: Soft Extremities: Non-Tender, No Pedal Edema Skin: Warm, Dry, Intact Wound/Incisions: Healing Well Neurological: No New Focal Deficit Psy/Mental Status: Alert, Normal Affect, Normal Mood - Problem List & Annotations (1) Anxiety SNOMED Code(s): 94703217 Code(s): F41.9 - ANXIETY DISORDER, UNSPECIFIED Status: Acute Priority: Medium Current Visit: No (2) SNOMED Code(s): 34213567 Code(s): Z34.90 - ENCNTR FOR SUPRVSN OF NORMAL , UNSP, UNSP TRIMESTER Status: Acute Current Visit: Yes Qualifiers: Weeks of gestation: 39 weeks Qualified Code(s): Z3A.39 - 39 weeks gestation of (3) PIH ( induced hypertension), antepartum SNOMED Code(s): 62986536, 08990615 Code(s): O13.9 - GESTATIONAL HTN W/O SIGNIFICANT PROTEINURIA, UNSP TRIMESTER Status: Acute Current Visit: Yes - Problem List Review Problem List Initiated/Reviewed/Updated: Yes - My Orders Last 24 Hours: My Active Orders 12/06/17 12:16 AMNISURE RUPTURE MEMBRAN [BF] Routine 12/06/17 13:45 Lactated Ringers [Ringers, Lactated] 1,000 ml IV ASDIRECTED 12/06/17 14:04 Epidural Catheter Management [OM.PC] Urgent 12/06/17 15:26 Patient Status [ADT] Routine Ibuprofen [Motrin] 600 mg PO Q6H PRN Lanolin [Lansinoh HPA] 1 gm TOP ASDIRECTED PRN Assess Lochia [WOMSER] Per Unit Routine Assess Uterine Involution [WOMSER] Per Unit Routine 12/06/17 15:27 Ice Therapy [OM.PC] Per Unit Routine Perineal Care [OM.PC] Per Unit Routine Peripheral IV Discontinue [OM.PC] Routine Sitz Bath [OM.PC] Per Unit Routine 12/06/17 15:29 Oxygen Therapy [RC] ASDIRECTED - Assessment Assessment:: 12/06/17 22 year old without complication Breast feeding GBS positive, treated 12/07/17 without complications HGB 10.9 Voiding and flow is light. No perineum pain Nipples very tender, baby not latching well VS stable , no fever Mood happy - Plan Plan:: 12/06/17 22 year old 38-39 weeks gestation induction for PIH, GDM, hyperemsis HGB 8.9 PLT 192 GBS pos, treated ABO A pos Rubella Immune misoprostol 50 MCG at 0800 12/06/17 Routine cares 48 hour stay support breast feeding 12/07/17 Routine cares Needs consult, possible nipple chávez Blood pressure low, hold beta max home tomorrow
--- NOTE | 2017-12-08 10:55 | PCM.PNPP ---
- General Info Date of Service: 12/08/17 (PPD 2 D/C) Admission Dx/Problem (Free Text): Patient Status Order with Admit Dx/Problem 12/06/17 08:15 Patient Status [ADT] Routine Admission Diagnosis/Problem Admission Diagnosis/Problem induced hypertension, antepartum Functional Status: Reports: Pain Controlled - Review of Systems General: Reports: No Symptoms HEENT: Reports: No Symptoms Pulmonary: Reports: No Symptoms Cardiovascular: Reports: No Symptoms Gastrointestinal: Reports: No Symptoms Genitourinary: Reports: No Symptoms Musculoskeletal: Reports: No Symptoms Skin: Reports: No Symptoms Neurological: Reports: No Symptoms Psychiatric: Reports: No Symptoms - General Info Date of Service: 12/08/17 - Patient Data Vital Signs - Most Recent: Last Vital Signs Temp 97.6 F 12/08/17 08:46 Pulse 88 12/08/17 08:46 Resp 18 12/08/17 08:46 BP 128/85 12/08/17 08:46 Pulse Ox 99 12/08/17 08:46 Weight - Most Recent: 214 lb Med Orders - Current: Current Medications Acetaminophen (Tylenol) 650 mg PO Q4H PRN PRN Reason: Pain (Mild 1-3) and fever Last Admin: 12/06/17 17:46 Dose: 650 mg Emollient Ointment (Lansinoh Hpa) 1 gm TOP ASDIRECTED PRN PRN Reason: Sore Nipples Fentanyl (Sublimaze) 100 mcg IVPUSH Q1H PRN PRN Reason: Pain (moderate 4-6) Last Admin: 12/06/17 12:55 Dose: 100 mcg Lactated Ringer's (Ringers, Lactated) 1,000 mls @ 100 mls/hr IV ASDIRECTED JAVI Last Admin: 12/06/17 13:40 Dose: 100 mls/hr Ibuprofen (Motrin) 600 mg PO Q6H PRN PRN Reason: mild pain or fever Ondansetron HCl (Zofran Odt) 4 mg PO Q4H PRN PRN Reason: Nausea/Vomiting Last Admin: 12/07/17 01:04 Dose: 4 mg Sodium Chloride (Saline Flush) 10 ml FLUSH ASDIRECTED PRN PRN Reason: Keep Vein Open Discontinued Medications Penicillin G Potassium 5 (millunits/ Sodium Chloride) 100 mls @ 100 mls/hr IV ONETIME ONE Stop: 12/06/17 08:59 Last Admin: 12/06/17 08:20 Dose: 100 mls/hr Penicillin G Potassium 2.5 (millunits/ Sodium Chloride) 50 mls @ 100 mls/hr IV Q4H JAVI Last Admin: 12/06/17 22:32 Dose: Not Given Oxytocin/Sodium Chloride (Pitocin In Ns 20 Units/1,000 Ml) 20 unit in 1,000 mls @ 999 mls/hr IV ONETIME ONE; Protocol Stop: 12/06/17 11:30 Last Admin: 12/06/17 15:05 Dose: 999 mls/hr, 999 mls/hr Ropivacaine (Naropin 0.2%) Confirm Administered Dose 200 mls @ as directed .ROUTE .STK-MED ONE Stop: 12/06/17 14:38 Misoprostol (Cytotec) 50 mcg VAG ONETIME ONE Stop: 12/06/17 07:59 Last Admin: 12/06/17 08:05 Dose: 50 mcg - Infant Interaction Infant Disposition, : in Room with Family Interaction: Holding Infant Feeding: Breastfed Infant; Nursed Well, Difficulty with Latch-on, Encouraged to Breastfeed Support Person: - Recovery Exam Fundal Tone: Firm Fundal Level: At Umbilicus Fundal Placement: Midline Lochia Amount: Small Lochia Color: Rubra/Red Perineum Description: Intact, Minimal Bruising/Swelling Episiotomy/Laceration: Approximated Bladder Status: Voiding Urinary Elimination: Voided - Exam General: Alert, Oriented HEENT: Pupils Equal Neck: Supple Lungs: Clear to Auscultation, Normal Respiratory Effort Cardiovascular: Regular Rate, Regular Rhythm GI/Abdominal Exam: Normal Bowel Sounds, Soft, Non-Tender, No Organomegaly, No Distention, No Abnormal Bruit, No Mass, Pelvis Stable Extremities: Normal Inspection, Normal Range of Motion, Non-Tender, No Pedal Edema, Normal Capillary Refill Skin: Warm, Dry, Intact Wound/Incisions: Healing Well Neurological: No New Focal Deficit Psy/Mental Status: Alert, Normal Affect, Normal Mood - Problem List & Annotations (1) Anxiety SNOMED Code(s): 07344367 Code(s): F41.9 - ANXIETY DISORDER, UNSPECIFIED Status: Acute Priority: Medium Current Visit: No (2) SNOMED Code(s): 81645678 Code(s): Z34.90 - ENCNTR FOR SUPRVSN OF NORMAL , UNSP, UNSP TRIMESTER Status: Acute Current Visit: Yes Qualifiers: Weeks of gestation: 39 weeks Qualified Code(s): Z3A.39 - 39 weeks gestation of (3) PIH ( induced hypertension), antepartum SNOMED Code(s): 49050797, 37627672 Code(s): O13.9 - GESTATIONAL HTN W/O SIGNIFICANT PROTEINURIA, UNSP TRIMESTER Status: Acute Current Visit: Yes - Problem List Review Problem List Initiated/Reviewed/Updated: Yes - Assessment Assessment:: 12/06/17 22 year old without complication Breast feeding GBS positive, treated 12/07/17 without complications HGB 10.9 Voiding and flow is light. No perineum pain Nipples very tender, baby not latching well VS stable , no fever Mood happy 12/08/17 Doing great Mild cramping Nipple shield helping with latching and Stable Vs, no fever Happy - Plan Plan:: 12/06/17 22 year old 38-39 weeks gestation induction for PIH, GDM, hyperemsis HGB 8.9 PLT 192 GBS pos, treated ABO A pos Rubella Immune misoprostol 50 MCG at 0800 12/06/17 Routine cares 48 hour stay support breast feeding 12/07/17 Routine cares Needs consult, possible nipple chávez Blood pressure low, hold beta max home tomorrow 12/08/17 Home today see me in 6 weeks
[2017-12-08 14:34] VITALS: BP 119/74
== END 2017-12-08 17:30 | disposition home or self-care (01) | DRG 775 ==
LOC: JP.OB 07:04 → OBSVTOIN 15:03 → JP.MS 15:45
PROVIDERS: ADMIT Nurse Practitioner Family; ATTEND Nurse Practitioner Family
PROC: 10E0XZZ Delivery of Products of Conception, External Approach (ICD-10-PCS; principal; 2017-12-06)
PROC: 3E0P7VZ Introduction of Hormone into Female Reproductive, Via Natural or Artificial Opening (ICD-10-PCS; 2017-12-06)
PROC: 3E033VJ Introduction of Other Hormone into Peripheral Vein, Percutaneous Approach (ICD-10-PCS; 2017-12-06)
PROC: 0HQ9XZZ Repair Perineum Skin, External Approach (ICD-10-PCS; 2017-12-06)
PROC: 6A550ZT Pheresis of Cord Blood Stem Cells, Single (ICD-10-PCS; 2017-12-06)
PROC: 00HU33Z Insertion of Infusion Device into Spinal Canal, Percutaneous Approach (ICD-10-PCS; 2017-12-06)
DX: O70.0 First degree perineal laceration during delivery (principal); O99.824 Streptococcus B carrier state complicating childbirth; Z3A.38 38 weeks gestation of pregnancy; Z37.0 Single live birth; O13.9 Gestational [pregnancy-induced] hypertension without significant proteinuria, unspecified trimester; O21.0 Mild hyperemesis gravidarum; O24.419 Gestational diabetes mellitus in pregnancy, unspecified control; O99.519 Diseases of the respiratory system complicating pregnancy, unspecified trimester; O99.320 Drug use complicating pregnancy, unspecified trimester; J45.909 Unspecified asthma, uncomplicated; Z87.891 Personal history of nicotine dependence; Z88.1 Allergy status to other antibiotic agents
CPT/HCPCS: 36415; 59409; 80305; 81001; 82565; 83615; 84112; 84450; 84460; 84520; 84550; 85025; A9270-GY; J2540; J2590; J2795; J3010; J7030; J7050; J7120

== ENCOUNTER 2019-03-30 16:47 | Emergency (ER) | payer MEDICAID ==
[2019-03-30] MEDS ORDERED: Sodium Chloride 0.9% 1,000 ML IV SCH (18:15)
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
[2019-03-30] MEDS ORDERED: Prochlorperazine 10 MG/2 ML SDV IVPUSH ONE (18:20)
[2019-03-30] MEDS: Sodium Chloride 0.9% 1,000 ML IV SCH ×2 (18:24→19:30)
[2019-03-30] MEDS ORDERED: HYDROmorphone 1 MG/ML Syringe IVPUSH ONE (18:32)
[2019-03-30] MEDS ORDERED: Alum Hydrox/Mag Hydrox/Simeth 30 ML, Lidocaine 2% 15 ML PO ONE ×2 (19:13)
[2019-03-30 20:02] VITALS: BP 118/82; PULSE 59
== END 2019-03-30 20:38 | disposition home or self-care (01) ==
LOC: JP.ED 16:47
DX: K21.0 Gastro-esophageal reflux disease with esophagitis (principal); J45.909 Unspecified asthma, uncomplicated; Z88.2 Allergy status to sulfonamides; Z79.899 Other long term (current) drug therapy
CPT/HCPCS: 36415; 80053; 81001; 81025; 83690; 85025; 86140; 96361; 96374; 96375; 99284; A9270; J0780; J1170; J7030

== ENCOUNTER 2019-04-01 14:00 | Emergency (ER) | payer MEDICAID ==
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
[2019-04-01] MEDS: Prochlorperazine 10 MG/2 ML SDV IVPUSH ONE (15:14)
[2019-04-01] MEDS: Lactated Ringers 1,000 ML IV SCH (15:18)
[2019-04-01] MEDS: Sodium Chloride 0.9% 10 ML Syringe FLUSH PRN (15:24)
[2019-04-01] MEDS: Potassium Chloride 20 MEQ in Premix Bag 1 BAG IV ONE (16:27)
[2019-04-01] MEDS: Potassium Chloride 20 MEQ Tab.ER PO ONE (16:27)
[2019-04-01] MEDS ORDERED: Lactated Ringers 1,000 ML IV ONE (16:27)
[2019-04-01] MEDS: Lactated Ringers 1,000 ML IV ONE (16:29)
[2019-04-01 18:09] VITALS: BP 133/72; PULSE 76
--- NOTE | 2019-04-01 19:28 | CRLUS ---
INDICATION: Right upper quadrant pain. TECHNIQUE: Ultrasound abdomen limited. Sonographic images of the right upper quadrant were obtained using denis-scale and color Doppler images. COMPARISON: No comparison FINDINGS: Liver: Normal in size and echotexture. No masses. No intrahepatic biliary dilatation. Gallbladder: No stones or sludge. Normal wall thickness. No pericholecystic fluid. Common bile duct: 4 mm. Pancreas: Unremarkable. Right kidney: 12.8 cm. Normal echotexture and cortex. No masses, stones, or hydronephrosis. Vasculature: Proximal abdominal aorta and IVC are unremarkable. IMPRESSION: Unremarkable right upper quadrant ultrasound. Dictated by Rober Husain MD @ Apr 01 2019 7:23PM Signed by Dr. Rober Husain @ Apr 01 2019 7:25PM
== END 2019-04-01 18:23 | disposition home or self-care (01) ==
LOC: JP.ED 14:00
DX: K52.9 Noninfective gastroenteritis and colitis, unspecified (principal); J45.909 Unspecified asthma, uncomplicated; Z88.2 Allergy status to sulfonamides; Z88.1 Allergy status to other antibiotic agents; Z79.899 Other long term (current) drug therapy
CPT/HCPCS: 36415; 76705; 80053; 81001; 81025; 83605; 83690; 85025; 96361; 96365; 96366; 96375; 99284; A9270; J0780; J3480; J7120

== ENCOUNTER 2019-04-05 16:46 | Emergency (ER) | payer MEDICAID ==
[2019-04-05 16:56] VITALS: BP 149/104; PULSE 92
[2019-04-05] MEDS ORDERED: Ondansetron 4 MG Tab.DIS PO ONE (16:58)
[2019-04-05] MEDS ORDERED: Lactated Ringers 1,000 ML IV ONE (17:02)
[2019-04-05] MEDS ORDERED: Metoclopramide 10 MG/2 ML SDV IVPUSH ONE (17:03)
[2019-04-05] MEDS ORDERED: HYDROmorphone 0.5 MG/0.5 ML Syringe IVPUSH ONE (17:08)
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
[2019-04-05] MEDS ORDERED: Pantoprazole 40 MG Vial IVPUSH SCH (17:15)
[2019-04-05] MEDS ORDERED: Potassium Chloride 10 MEQ Cap.ER PO ONE (17:35)
== END 2019-04-05 19:11 | disposition home or self-care (01) ==
LOC: JP.ED 16:46
DX: R11.15 Cyclical vomiting syndrome unrelated to migraine (principal); J45.909 Unspecified asthma, uncomplicated; E66.9 Obesity, unspecified; Z88.2 Allergy status to sulfonamides; Z88.1 Allergy status to other antibiotic agents; Z68.32 Body mass index [BMI] 32.0-32.9, adult; Z79.899 Other long term (current) drug therapy
CPT/HCPCS: 36415; 80048; 80305; 81025; 83735; 87081; 87880; 99284; C9113; J1170; J2765; J7120

== ENCOUNTER 2019-10-09 15:13 | Emergency (ER) | payer MEDICAID ==
[2019-10-09 15:24] VITALS: BP 116/82; PULSE 85
[2019-10-09] MEDS ORDERED: Ibuprofen 600 MG Tab PO ONE (15:34)
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
--- NOTE | 2019-10-09 15:54 | CRLCR ---
Indication: Injury Technique: Three views left foot Comparison: September 17, 2012 Findings: Bones: Alignment is normal. There is a small osseous density lateral to the cuboid bone. Remainder of the osseous structures are intact. Joint spaces: Unremarkable. Soft tissues: Unremarkable. Impression: Small osseous density lateral to the cuboid bone likely represents an accessory ossicle, however if there is focal pain in this region, this could represent a minimally displaced fracture. Correlate focal pain or tenderness at this site. Dictated by Ning Rinaldi MD @ Oct 09 2019 3:48PM Signed by Dr. Ning Rinadli @ Oct 09 2019 3:52PM
== END 2019-10-09 16:57 | disposition home or self-care (01) ==
LOC: JP.ED 15:13
DX: M79.672 Pain in left foot (principal); E66.9 Obesity, unspecified; Z88.2 Allergy status to sulfonamides; Z68.31 Body mass index [BMI] 31.0-31.9, adult
CPT/HCPCS: 73630; 99283; A9270

== ENCOUNTER 2021-10-20 22:32 | Emergency (ER) | payer MEDICAID ==
[2021-10-20 22:46] VITALS: BP 116/58; PULSE 70
[2021-10-21 00:04] LABS: CORONAVIRUS COVID-19 NAA NEGATIVE (NEGATIVE)
== END 2021-10-21 00:29 | disposition home or self-care (01) ==
LOC: JP.ED 22:32
DX: J06.9 Acute upper respiratory infection, unspecified (principal); H69.83 Other specified disorders of Eustachian tube, bilateral; E66.9 Obesity, unspecified; Z68.39 Body mass index [BMI] 39.0-39.9, adult; Z88.1 Allergy status to other antibiotic agents; Z20.822 Contact with and (suspected) exposure to COVID-19
CPT/HCPCS: 0241U; 87081; 87880-QW; 99283

== ENCOUNTER 2022-07-13 09:18 | Emergency (ER) | payer MEDICAID ==
[2022-07-13 09:44] VITALS: BP 131/81; PULSE 94
[2022-07-13 10:59] LABS: CORONAVIRUS COVID-19 NAA NEGATIVE (NEGATIVE)
== END 2022-07-13 11:30 | disposition home or self-care (01) ==
LOC: JP.ED 09:18
DX: B34.9 Viral infection, unspecified (principal); Z88.1 Allergy status to other antibiotic agents; Z20.822 Contact with and (suspected) exposure to COVID-19
CPT/HCPCS: 0241U; 99282; 99284